=== PATIENT | female | born 1960 | race Caucasian/White ===

== ENCOUNTER 2019-04-16 08:45 | Inpatient (IN) ==
--- NOTE | 2019-04-02 15:23 | PAT Medication Instructions ---
Medication Instructions Date of Service April 02, 2019 Home Medications Ca carb-D3-mag [id number]-[id number] 1 tab PO QAM alprazolam [Xanax] 0.5 mg PO HS PRN cholecalciferol (vitamin D3) 4,000 unit PO QAM cyanocobalamin (vitamin B-12) 100 mcg IM MONTHLY duloxetine 60 mg PO QAM levothyroxine [Synthroid] 75 mcg PO QAM pantoprazole 40 mg PO QAM sulindac 200 mg PO QAM ASK your surgeon for instructions sulindac 200 mg PO QAM DO NOT take the morning of surgery Ca carb-D3-mag dy-vhm-fpqd-Zn 1 tab PO QAM cholecalciferol (vitamin D3) 4,000 unit PO QAM cyanocobalamin (vitamin B-12) 100 mcg IM MONTHLY Take morning of surgery With a small sip of water, OTHERWISE NOTHING TO EAT OR DRINK AFTER MIDNIGHT: duloxetine 60 mg PO QAM levothyroxine [Synthroid] 75 mcg PO QAM pantoprazole 40 mg PO QAM Take evening before surgery alprazolam [Xanax] 0.5 mg PO HS PRN (if needed) Other Notes If you have any questions please call us at [phone] or [phone] or [phone] or [phone]
--- NOTE | 2019-04-06 15:21 | Anesthesiology Consultation ---
Date of Service April 06, 2019 Assessment & Plan (1) Encounter for pre-operative examination: Chart Review Chart Review: Acceptable Risk for Surgery and Patient seen in Pre Admission Testing Consults Requested medical (Dr. Rivera (04/07)) Patient was seen by PCP on 04/07 for preoperative evaluation. Per note from this visit, "Patient is cleared for proposed right UKA by Dr. Cruz on April 16". Teaching & Discussion Pre-Anesthesia Teaching/Discussion Notes: Instructed NPO after midnight before surgery, except medications with 15 cc of water. Medication instructions provided according to the PAT guidelines. History Surgery Operation Date: 04/16/19 07:00 Proposed Procedures p Right Knee Unicompartmental Arthroplasty - Mando Cruz MD Height/Weight Height: 5 ft 7 in Weight: 97 kg Allergies Allergy/AdvReac Type Severity Reaction Status Date / Time No Known Allergies Allergy Verified 03/30/19 15:35 Medications Home Medications Medication Instructions Recorded Confirmed Last Taken Ca carb-D3-mag uh-izs-nstu-Zn 1 tab PO QAM 03/30/19 03/30/19 Unknown [Caltrate + D3 Plus Minerals] alprazolam [Xanax] 0.5 mg PO HS PRN 03/30/19 03/30/19 Unknown cholecalciferol (vitamin D3) 4,000 unit PO QAM 03/30/19 03/30/19 Unknown [Vitamin D3] cyanocobalamin (vitamin B-12) 100 mcg IM MONTHLY 03/30/19 03/30/19 Unknown duloxetine 60 mg PO QAM 03/30/19 03/30/19 Unknown levothyroxine [Synthroid] 75 mcg PO QAM 03/30/19 03/30/19 Unknown pantoprazole 40 mg PO QAM 03/30/19 03/30/19 Unknown sulindac 200 mg PO QAM 03/30/19 03/30/19 Unknown Past Medical History Medical History GERD (gastroesophageal reflux disease) Hypothyroidism Osteoarthritis Exercise / Class Metabolic Activity II 4-5 Yardwork/Stairs/Walk up hill (Walks >8K steps per day. Able to climb FOS. Denies CP or SOB. ) Past Surgical History Surgical History History of cardiac cath 2015= NO STENTS History of cholecystectomy History of colonoscopy History of hysterectomy PARTIAL HYSTERECTOMY History of tonsillectomy 08/13/13 - MAC #3, ETT #7.0, Grade 1 View Past Anesthesia History No Hx of Anesthesia Complications and No Family Hx of Anesthesia Complications History of PONV History of PONV (? After Hysterectomy) and Hx of Motion Sickness Social History Smoking Status: Never smoker Smoking cigarettes per day: 0 Do You Dip or Chew Tobacco: No Hx Alcohol Use: No Alcohol Intake Frequency Comment: 0 Hx Substance Use: No substance use type: does not use Review of Systems Patient denies chest pain, shortness of breath, dyspnea on exertion, wheezing, palpitations. + Joint Pain (Knee, Back) +Acid Reflux (Well controlled on current medications) +Cough (Nonproductive, PCP aware) Physical Exam Vital Signs BP: 134/84 P: 76 R: 16 T: 98.2 SPO2: 96% on RA Constitutional + obese ENMT Mouth: + poor dentition Thyromental Distance: < 3.5 Finger Breadths (3) Mallampati Class: II Neck normal visual inspection and trachea midline; neck extension not limited Respiratory normal respiratory effort Auscultation: lungs clear to auscultation bilaterally Cardiovascular Rate/Rhythm: regular rate and regular rhythm Heart Sounds: no murmur Vessels: no carotid bruit Neurologic moves all extremities Psychiatric Orientation: alert and oriented x 3 Testing Laboratory Results 04/06/19 15:52 04/06/19 15:52 04/06/19 04/06/19 04/06/19 15:52 15:52 15:52 PT 10.3 INR 1.0 APTT 26.8 Hemoglobin A1c Urine Color Yellow Urine Appearance Clear Urine pH 5.0 Ur Specific [place] 1.013 Urine Protein Negative Urine Glucose (UA) Negative Urine Ketones Negative Urine Nitrite Negative Ur Leukocyte Esterase Negative Blood Type A Negative Antibody Screen NEGATIVE 04/06/19 15:52 PT INR APTT Hemoglobin A1c 5.2 Urine Color Urine Appearance Urine pH Ur Specific [place] Urine Protein Urine Glucose (UA) Urine Ketones Urine Nitrite Ur Leukocyte Esterase Blood Type Antibody Screen 04/06/19 15:52 Urine Culture - Preliminary Urine,Clean Catch Pin-point growth present, reincubating. Electrocardiogram Date: 04/06/19 Findings: + NSR @ (67) Chest X-Ray Date: 04/06/19 Findings: + NAD FINDINGS: The lungs are clear. Cardiac silhouette is normal in size. No pleural effusions. No pneumothorax. Prior cholecystectomy.. IMPRESSION: No acute process. Cardiac Catheterization Date: 12/13/15 IMPRESSION AND PLAN: Patient has: Angiographically normal coronary arteries, Normal left ventriculogram Complications: None Recommendations: Medical therapy and aggressive risk factor modification.
[2019-04-06 16:29] LABS: Basophils # (auto) 0.04 K/uL (0-0.2); Basophils % (auto) 0.6 %; Eosinophils # (auto) 0.13 K/uL (0-0.5); Hematocrit (blood only) 36.7 % (37-47); Hemoglobin 13.1 g/dL (12.0-16.0); Immature Granulocytes # (auto) 0.01 K/uL (0.00-0.02); Immature Granulocytes % (auto) 0.2 %; Lymphocytes # (auto) 1.85 K/uL (1.2-3.4); Lymphocytes % (auto) 28.4 %; Mean Corpuscular Hgb Conc 35.7 g/dL (32-36); Mean Corpuscular Volume 84.2 fL (80-100); Mean Platelet Volume 9.5 fL (7.4-10.4); Monocytes # (auto) 0.51 K/uL (0.11-0.59); Monocytes % (auto) 7.8 %; Neutrophils # (auto) 3.97 K/uL (1.4-6.5); Platelet Count 262 K/uL (130-400); RDW Coefficient of Variation 13.3 % (11.5-14.5); RDW Standard Deviation 40.6 fL (36.4-46.3); Red Blood Count 4.36 M/uL (4.2-5.4); White Blood Count 6.51 K/uL (4.8-10.8)
--- NOTE | 2019-04-06 16:34 | XRay Report ---
XR chest Pre-admission PA/Lat HISTORY: Preop. COMPARISON: None. FINDINGS: The lungs are clear. Cardiac silhouette is normal in size. No pleural effusions. No pneumot horax. Prior cholecystectomy.. IMPRESSION: No acute process. Electronically signed by: Lakhwinder Maza M.D. 04/06/2019 4:33 PM
[2019-04-06 16:37] LABS: Appearance Urine Clear (Clear); Bilirubin Urine Negative (Negative); Blood Urine Negative (Negative); Color Urine Yellow; Glucose Urine UA Negative (Negative); Ketones Urine Negative (Negative); Leukocyte Esterase Urine Negative (Negative); Nitrite Urine Negative (Negative); Protein Urine Negative (Negative); Specific Gravity Urine 1.013 (1.000-1.030); Urobilinogen Urine Negative (Negative)
[2019-04-06 16:40] LABS: Albumin Level 3.8 gm/dl (3.4-5.0); BUN Creatinine Ratio 13.4 (10-20); Calcium 9.4 mg/dl (8.5-10.1); Creatinine Clr Calc Pharmacy 65.9 ml/min; Est GFR (African American) 62.3; Est GFR (Non-African American) 53.7; Potassium 4.1 mmol/L (3.5-5.1)
[2019-04-06 16:43] LABS: Partial Thromboplastin Time 26.8 Seconds (21.0-31.0); Prothrombin Time 10.3 Seconds (9.0-12.0)
[2019-04-07 05:36] LABS: Estimated Average Glucose 103 mg/dl; Hemoglobin A1C 5.2 % (4.5-5.6)
--- NOTE | 2019-04-14 20:50 | History & Physical Report ---
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 Treatment options were discussed with the patient at [facility]. She has failed conservative measures as above. She continues to have significant pain in her knee. Risks benefits and alternatives to surgery where discuss with the patient including but not limited to DVT, PE, damage to blood vessels or nerves, stiffness, failure to relieve all symptoms, possibility of Need for revision surgery, risks of anesthesia, a patient demonstrated understanding. All questions were answered. Plan will be for right unicompartmental knee arthroplasty. Planned for for aspirin 81 mg bid for 30 days postoperatively for DVT prophylaxis, plans on home with outpatient Physical Therapy upon discharge from the hospital. She will follow up post operatively. History of Present Illness Chief Complaint: Right knee pain Primary Care Provider: Sydnie Rivera Patient is a 58 year old female with past medical history significant for anxiety, hypothyroidism, and GERD. She presents with a long-standing history of right knee pain. She continues at medial side of knee pain despite conservatives measures such as cortisone injection anti-inflammatories and physical therapy. So let's proceed with surgical intervention. Surgery is scheduled for Apr 16 2019 at [facility]. Patient denies headaches, sweats, fevers, chills, double vision, blurred vision, cough, sore throat, dysphagia, chest pa in, sob, wheezing, n/v/d/c, numbness, tingling, fatigue, urinary symptoms, mood disorders. ROS positive for right pain and stiffness. Allergies Allergy/AdvReac Type Severity Reaction Status Date / Time No Known Allergies Allergy Verified 03/30/19 15:35 Home Medications Home Medications Medication Instructions Recorded Confirmed Type Ca carb-D3-mag fx-ztw-hsle-Zn 1 tab PO QAM 03/30/19 03/30/19 History [Caltrate + D3 Plus Minerals] alprazolam [Xanax] 0.5 mg PO HS PRN 03/30/19 03/30/19 History cholecalciferol (vitamin D3) 4,000 unit PO QAM 03/30/19 03/30/19 History [Vitamin D3] cyanocobalamin (vitamin B-12) 100 mcg IM MONTHLY 03/30/19 03/30/19 History duloxetine 60 mg PO QAM 03/30/19 03/30/19 History levothyroxine [Synthroid] 75 mcg PO QAM 03/30/19 03/30/19 History pantoprazole 40 mg PO QAM 03/30/19 03/30/19 History sulindac 200 mg PO QAM 03/30/19 03/30/19 History Past Med/Surg History Medical History GERD (gastroesophageal reflux disease) Hypothyroidism Osteoarthritis Surgical History History of cardiac cath 2016= NO STENTS History of cholecystectomy History of colonoscopy History of hysterectomy PARTIAL HYSTERECTOMY History of tonsillectomy 08/13/13 - MAC #3, ETT #7.0, Grade 1 View Social History Preferred Language: Ukrainian Communication Ability: Effective Radio Despatcher Required: No Beliefs That Will Affect Care: None Current Living Situation: Spouse Other Information That Helps Us Care for You: No Feels Safe at Home: Yes Safety Concerns: Feels Safe At This Time Smoking Status: Never smoker Cigarettes Per Day: 0 Do You Dip or Chew Tobacco: No Second Hand Exposure: No Tobacco Cessation Education Requested by Patient: No Hx Alcohol Use: No Hx Substance Use: No Review of Systems All systems reviewed & are unremarkable except as noted in HPI & below Physical Exam Constitutional: well developed and well nourished; no acute distress Eyes: PERRL, conjunctivae normal, anicteric sclerae ENMT: external ear and nose normal, oropharynx normal Neck: trachea midline, no thyromegaly Respiratory: normal respiratory effort, lungs clear to auscultation Cardiovascular: RRR, no murmur, no edema Musculoskeletal: Right knee range of motion 0 to 135 degrees, stable to valgus and varus stress test, tenderness medial joint line, positive stephanie's Skin: no rashes, warm and dry Neurologic: patellar DTR's 2+ bilat, sensation intact Psychiatric: A+Ox3, euthymic affect Results & Data Laboratory Results Lab Results 04/06/19 04/06/19 04/06/19 Range/Units 15:52 15:52 15:52 WBC 6.51 (4.8-10.8) K/uL RBC 4.36 (4.2-5.4) M/uL Hgb 13.1 (12.0-16.0) g/dL Hct 36.7 L (37-47) % MCV 84.2 (80-100) fL MCH 30.0 (25-34) pg MCHC 35.7 (32-36) g/dL RDW Std Deviation 40.6 (36.4-46.3) fL RDW Coeff of Malia 13.3 (11.5-14.5) % Plt Count 262 (130-400) K/uL MPV 9.5 (7.4-10.4) fL Immature Gran % (Auto) 0.2 % Neut % (Auto) 61.0 % Lymph % (Auto) 28.4 % [place] % (Auto) 7.8 % Eos % (Auto) 2.0 % Baso % (Auto) 0.6 % Immature Gran # (Auto) 0.01 (0.00-0.02) K/uL Neut # (Auto) 3.97 (1.4-6.5) K/uL Lymph # (Auto) 1.85 (1.2-3.4) K/uL [place] # (Auto) 0.51 (0.11-0.59) K/uL Eos # (Auto) 0.13 (0-0.5) K/uL Baso # (Auto) 0.04 (0-0.2) K/uL PT 10.3 (9.0-12.0) Seconds INR 1.0 (0.9-1.1) APTT 26.8 (21.0-31.0) Seconds PTT Ratio 1.0 Sodium 140 (136-145) mmol/L Potassium 4.1 (3.5-5.1) mmol/L Chloride 107 (98-107) mmol/L Carbon Dioxide 27 (21-32) mmol/L Anion Gap 6.0 (3-11) BUN 15 (7-18) mg/dl Creatinine 1.14 (0.6-1.2) mg/dl Est Cr Clr Drug Dosing 65.9 ml/min Est GFR ( Amer) 62.3 Est GFR (Non-Af Amer) 53.7 BUN/Creatinine Ratio 13.4 (10-20) Glucose 86 (70-99) mg/dl Estimat Average Glucose mg/dl Hemoglobin A1c (4.5-5.6) % Calcium 9.4 (8.5-10.1) mg/dl Albumin 3.8 (3.4-5.0) gm/dl Urine Color Urine Appearance (Clear) Urine pH (4.5-7.5) Ur Specific [place] (1.000-1.030) Urine Protein (Negative) Urine Glucose (UA) (Negative) Urine Ketones (Negative) Urine Blood (Negative) Urine Nitrite (Negative) Urine Bilirubin (Negative) Urine Urobilinogen (Negative) Ur Leukocyte Esterase (Negative) Blood Type Antibody Screen 04/06/19 04/06/19 04/06/19 Range/Units 15:52 15:52 15:52 WBC (4.8-10.8) K/uL RBC (4.2-5.4) M/uL Hgb (12.0-16.0) g/dL Hct (37-47) % MCV (80-100) fL MCH (25-34) pg MCHC (32-36) g/dL RDW Std Deviation (36.4-46.3) fL RDW Coeff of Malia (11.5-14.5) % Plt Count (130-400) K/uL MPV (7.4-10.4) fL Immature Gran % (Auto) % Neut % (Auto) % Lymph % (Auto) % [place] % (Auto) % Eos % (Auto) % Baso % (Auto) % Immature Gran # (Auto) (0.00-0.02) K/uL Neut # (Auto) (1.4-6.5) K/uL Lymph # (Auto) (1.2-3.4) K/uL [place] # (Auto) (0.11-0.59) K/uL Eos # (Auto) (0-0.5) K/uL Baso # (Auto) (0-0.2) K/uL PT (9.0-12.0) Seconds INR (0.9-1.1) APTT (21.0-31.0) Seconds PTT Ratio Sodium (136-145) mmol/L Potassium (3.5-5.1) mmol/L Chloride (98-107) mmol/L Carbon Dioxide (21-32) mmol/L Anion Gap (3-11) BUN (7-18) mg/dl Creatinine (0.6-1.2) mg/dl Est Cr Clr Drug Dosing ml/min Est GFR ( Amer) Est GFR (Non-Af Amer) BUN/Creatinine Ratio (10-20) Glucose (70-99) mg/dl Estimat Average Glucose 103 mg/dl Hemoglobin A1c 5.2 (4.5-5.6) % Calcium (8.5-10.1) mg/dl Albumin (3.4-5.0) gm/dl Urine Color Yellow Urine Appearance Clear (Clear) Urine pH 5.0 (4.5-7.5) Ur Specific [place] 1.013 (1.000-1.030) Urine Protein Negative (Negative) Urine Glucose (UA) Negative (Negative) Urine Ketones Negative (Negative) Urine Blood Negative (Negative) Urine Nitrite Negative (Negative) Urine Bilirubin Negative (Negative) Urine Urobilinogen Negative (Negative) Ur Leukocyte Esterase Negative (Negative) Blood Type A Negative Antibody Screen NEGATIVE Diagnostic Findings Right knee radiographs: Moderate joint space narrowing medial compartment with osteophyte formation medial femoral condyle and medial tibial plateau. MRI of right knee demonstrates an OCD medial femoral condyle. Lateral compartment and patellofemoral compartment appear to be well preserved.
[~2019-04-16 08:45] MED LIST: ACETAMINOPHEN 500 MG TAB PO SCH; BUPIVACAINE 0.5 % 5 MG/1 ML PF 10ML VIAL ONE; CEFAZOLIN 2000MG 2,000 MG/15 ML SYR IV SCH; CeleBREX 200 MG CAP PO SCH; EPINEPHrine INJ 1 MG/ML AMP ONE; FAMOTIDINE 20 MG TAB PO SCH; GABAPENTIN 300 MG x 2 PO SCH; LR 500ML BOLUS, THEN 15ML/HR IV SCH; ROPIVACAINE 0.5% 5 MG/ML 30 ML VIAL ONE; ROPIVACAINE 0.5% HCL/PF 150 MG, BUPIVACAINE 0.5% MPF 30 ML, EPINEPHrine 30MG/30ML (OR U... INFIL SCH; TRANEXAMIC ACID 1,000 MG **IV Intra-op IV SCH; TRANEXAMIC ACID 1,000 MG **IV Pre-op IV SCH; dexAMETHasone 4 MG TAB PO SCH
--- OUTSIDE RECORDS SUMMARY | 2019-04-16 08:51 | External Medical Summary | Continuity of Care Document ---
:1960 Author Name Yuridia Booker Address Unavailable Unavailable , Care Team Providers Name Role Phone Annia Elder M.D. Unavailable 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 Refills: 0 Xanax 0.5 MG Oral Tablet; TAKE 1 TABLET Daily at Bedtime as needed for sleep. Refills: 0 Caltrate 600 Plus-Vit D TABS; TAKE 1 TABLET TWICE DAILY D IRECTED. Refills: 0 Venlafaxine HCl - 75 MG Oral Tablet; TAKE 1 TABLET DAILY. Start: 12-Aug-2013 Refills: 0 Synthroid 75 MCG Oral Tablet; TAKE 1 TAB LET IN THE MORNING ON AN EMPTY STOMACH WITH A FULL GLASS OF WATER, WAIT 30 MINUTES TO EAT Jhony Elder Sta rt: 12-Aug-2013 Quantity: 30 Refills: 5 Biotin 5000 MCG Oral Capsule; TAKE CAPSULE Daily Refills: 0 Vitamin D3 2000 UNIT Oral Capsule; TAKE 1 CAPSULE Daily Refills: 0 Procedures Procedures not documented Immunizations Immunizations not documented Social History - Smoking Status Never smoker Interventions Follow-ups/ReferralsFollow-up visit in 1 year; Done: 07 Sep 2015 Discussion/SummaryApproximately 15 Minutes was spent with the patient. Greater than 50% of time with patient was spent on counseling and coordinating care. Various aspects of thyroid disease and sleep hygiene. Plan of Treatment Planned Observations Planned Goals not documented Results No Known Results Results not documented Encounters Appointment; Josh Elder M.D. 05-Sep-2015 17:20 Encounter Diagnosis: Problem not documented
--- NOTE | 2019-04-16 09:01 | History & Physical Bridge Note ---
Date of Service April 16, 2019 History & Physical Bridge Note I have examined the patient, reviewed the History & Physical and in the interval since the performance of the History & Physical I have noted the following changes of clinical significance: no changes noted
[2019-04-16] MEDS ORDERED: MIDAZOLAM HCL 1 MG/ML 2ML VIAL ONE ×2 (09:06→10:27)
[2019-04-16] MEDS ORDERED: fentaNYL citrate 100 MCG/2 ML VIAL ONE (09:06)
[2019-04-16] MEDS ORDERED: fentaNYL citrate 100 MCG/2 ML VIAL IV PRN (09:27)
[2019-04-16] MEDS ORDERED: ePHEDrine sulfate 50 MG/ML AMP IV PRN (09:27)
[2019-04-16] MEDS ORDERED: LABETALOL HCL IV 5 MG/ML 20ML IV PRN (09:27)
[2019-04-16] MEDS ORDERED: MEPERIDINE HCL 25 MG/ML CARP IV PRN (09:27)
[2019-04-16] MEDS ORDERED: ATROPINE SULFATE 0.1 MG/ML 10ML SYR IV PRN (09:27)
[2019-04-16] MEDS ORDERED: PHENYLEPHRINE 100MCG/ML 5ML SYR IV PRN (09:27)
[2019-04-16] MEDS ORDERED: ONDANSETRON INJ 2 MG/ML 2 ML VIAL IV PRN ×2 (09:27→13:46)
[2019-04-16] MEDS ORDERED: HYDROmorphone INJ 1 MG/ML SYRINGE IV PRN (09:27)
[2019-04-16] MEDS ORDERED: POVIDONE-IODINE OP SOLN 30 ML BTL ONE (09:47)
[2019-04-16] MEDS ORDERED: BACITRACIN INJ 50,000 UNIT VIAL ONE (09:47)
[2019-04-16] MEDS ORDERED: KETAMINE HCL INJ 50 MG/ML 10 ML VIAL ONE (10:39)
[2019-04-16] MEDS ORDERED: PROPOFOL IV EMULSION 10 MG/ML 20 ML VIAL IV ONE (10:44)
[2019-04-16] MEDS ORDERED: ONDANSETRON INJ 2 MG/ML 2 ML VIAL ONE (10:44)
--- NOTE | 2019-04-16 11:45 | Operative Report ---
Post Operative Report Pre & Post Diagnosis Operation Date: 04/16/19 11:05 Pre-Op Diagnosis: RIGHT KNEE MEDIAL COMPARTMENT OSTEOARTHRITIS with osteonecrosis medial femoral condyle Post-Op Diagnosis: RIGHT KNEE MEDIAL COMPARTMENT OSTEOARTHRITIS with osteonecrosis medial femoral condyle Procedure Operation Date: 04/16/19 11:05 Actual Procedures p Right Knee Unicompartmental Arthroplasty(Right) - Mando Cruz MD Surgeon Mando Cruz MD Sap Basis Administrator Graeme Donis PA-C Estimated Blood Loss 10 Findings Consistent with Post-Op Diagnosis Specimens Bone and tissue Drains None Anesthesia Type Spinal MAC Complications none Disposition Accompanied Patient To Recovery: No Disposition: Recovery Room Indications The patient is a 58-year-old female long-standing pain of the right knee. Imaging demonstrated arthritis of the medial compartment as well as osteonecrosis of the posterior aspect of the medial femoral condyle. She has failed conservative measures including injection, anti-inflammatories, rehab. She wishes to proceed with a unicompartmental knee arthroplasty Description of Procedure Risks benefits and alternatives of surgery including but not limited to infection, DVT, pain, stiffness, need for surgery, damage to blood vessels, damage to nerves or risks of anesthesia were discussed with the patient and they wished to proceed. The patient was identified and the laterality was confirmed and marked. They received a preoperative antibiotic as well as a spinal anesthetic and an abductor canal block. A well-padded tourniquet was applied and then the limb was prepped and draped in standard manner with ChloraPrep. The limb was exsanguinated and the tourniquet was inflated. I made an anterior incision slightly medial to the midline. I sharply incised the skin then utilized Bovie electrocautery to achieve hemostasis. I made a medial parapatellar arthrotomy immobilized the patella laterally. I then e xcised the anterior horns of the medial meniscus as well as a portion of infrapatellar fat pad. I then inspected the patellofemoral joint. There was only mild degenerative change in the patellofemoral joint. I then inspected the lateral compartment. There was no degenerative change in the lateral compartment. I then pinned into place a patient-matched distal tibial cutting guide and made my tibial resection centering the lateral cut off of the border of the anterior cruciate ligament. I then pinned into place a patient-matched femoral cutting guide. I then pinned into place the 2 in 1 femoral cutting guide. I made my posterior and chamfer cuts. I then pinned into place the tibial trial. I then drilled for the posts. I then sequentially trialed to size the polyethylene until there was good soft tissue balancing and range of motion. All the trial components were removed. The deep tissues were anesthetized with an ortho mix solution. Then with Simplex HV with gentamicin cement, I cemented my definitive components. Definitive components, Andrews and Nephew ZUK: Femur C Tibia 2 Poly 8 A betadine soak was performed. The arthrotomy was closed with interrupted #1 Vicryl suture subcutaneous tissue was closed with interrupted 2-0 Vicryl suture. The skin was closed with with prateek. A malou and Acticoat dressing were placed Sterile dressings were applied. All needle and sponge counts were correct at the end of the procedure patient was transferred to the PACU in stable condition without apparent complication. The PA-C was necessary for assistance with procedure for assistance in positioning, prepping, draping, retraction and closure. I attest to the content of the Intraoperative Record and any orders documented therein. Any exceptions are noted below.
--- NOTE | 2019-04-16 12:47 | XRay Report ---
XR knee RT 2V routine CLINICAL HISTORY: Postoperative evaluation. COMPARISON: None FINDINGS: These images demonstrate a medial compartment arthroplasty of the right knee. Hardware is intact. Alignment is anatomic. There are skin prateek. There is no fracture or unexpected radiopaque foreign body. IMPRESSION: Expected findings following medial compartment arthroplasty of the right knee. Electronically signed by: Jered Haque M.D. 04/16/2019 12:46 PM
--- NOTE | 2019-04-16 12:54 | Anesthesiology Progress Note ---
Date of Service April 16, 2019 Anesthesia Post Procedure Vital Signs Vital Signs: Temp Pulse Pulse Resp BP Pulse Ox 04/16/19 12:50 63 17 111/78 95 04/16/19 12:40 66 15 126/78 95 04/16/19 12:30 73 20 126/72 97 04/16/19 12:23 36.4 C L 75 16 118/75 100 04/16/19 09:05 36.7 C 67 18 131/92 96 Pain Intensity Right Knee: Pain Intensity: 0 Transfer of Care Handoff Completed per policy Notes Mental Status: alert / awake / arousable Patient Amnestic to Procedure: Yes Nausea / Vomiting: adequately controlled Pain: adequately controlled Airway Patency, RR, SpO2: stable & adequate BP & HR: stable & adequate Hydration State: stable & adequate Neuraxial Anesthesia: was administered and sensory block is resolving Anesthetic Complications: no major complications apparent and Pt Satisfied with anesthetic care
[2019-04-16] MEDS ORDERED: OXYCODONE HCL IR 5 MG TAB (IMMEDIATE RELEASE) PO PRN (13:46)
[2019-04-16] MEDS ORDERED: MAGNESIUM HYDROXIDE SUSP 30 ML UDC PO PRN (13:46)
[2019-04-16] MEDS ORDERED: HYDROmorphone INJ 0.5 MG/0.5 ML SYR IV PRN (13:46)
[2019-04-16] MEDS ORDERED: BISACODYL 10 MG SUPP PR PRN (13:46)
[2019-04-16] MEDS ORDERED: ALPRAZolam 0.5 MG TABLET PO PRN (13:46)
[2019-04-16] MEDS ORDERED: NALOXONE HCL 0.4 MG/1 ML VIAL/CARP IV PRN (13:46)
[2019-04-16] MEDS: SODIUM CHLORIDE 0.9% 1000ML 1,000 ML IV SCH ×2 (13:58→19:41)
[2019-04-16] MEDS: ACETAMINOPHEN 500 MG TAB PO SCH ×2 (14:03→21:37)
[2019-04-16] MEDS: CEFAZOLIN 2000MG 2,000 MG/15 ML SYR IV SCH (16:58)
[2019-04-16] MEDS: DOCUSATE SODIUM 100 MG CAP PO SCH (20:32)
[2019-04-16] MEDS: ASPIRIN 81 MG ECTAB PO SCH (20:32)
[2019-04-16] MEDS ORDERED: SENNA 8.6 MG TAB PO SCH (21:00)
[2019-04-16] MEDS: CeleBREX 200 MG CAP PO SCH (21:35)
[2019-04-17] MEDS: CEFAZOLIN 2000MG 2,000 MG/15 ML SYR IV SCH (01:39)
[2019-04-17] MEDS ORDERED: ACETAMINOPHEN 500 MG TAB PO SCH ×2 (05:30→09:15)
[2019-04-17 05:48] LABS: Hematocrit (blood only) 30.6 % (37-47); Hemoglobin 10.4 g/dL (12.0-16.0); Mean Platelet Volume 8.8 fL (7.4-10.4); Platelet Count 209 K/uL (130-400); Red Blood Count 3.56 M/uL (4.2-5.4); White Blood Count 9.73 K/uL (4.8-10.8)
[2019-04-17 06:22] LABS: BUN Creatinine Ratio 18.6 (10-20); Calcium 8.6 mg/dl (8.5-10.1); Creatinine Clr Calc Pharmacy 73.2 ml/min; Est GFR (African American) 71.2; Est GFR (Non-African American) 61.4; Potassium 4.2 mmol/L (3.5-5.1)
[2019-04-17] MEDS ORDERED: LEVOTHYROXINE SODIUM 75 MCG TABLET PO SCH (06:30)
--- NOTE | 2019-04-17 07:17 | Orthopedic Progress Note ---
Date of Service April 17, 2019 Assessment & Plan (1) Primary osteoarthritis of right knee: POD#1 right UKA -Pain management -DVT prophylaxis-ASA 81mg BID -PT/OT -D/C planning-home with plans on doing outpatient PT later today as long as PT goes well -AM labs- hemoglobin down to 10.4 from 13.1 likely due to surgical loss vs dilutional. Subjective Patient is POD1 from her right UKA. She is doing well. Pain is controlled. She does not have much pain with rest, does have some with WB. She denies any other complaints. She would like to go home today. Review of Systems Review of Systems: All systems reviewed & are unremarkable except as noted in HPI & below Physical Exam Physical Exam: Dressing is c/d/i. Toes are mobile, no calf tenderness. N/V status and sensation intact. CALIN is sucking. Results & Data Vital Signs (Past 12 Hours) Vital Signs Temp Pulse Pulse Resp BP BP Pulse Ox 04/17/19 03:11 36.5 C 65 14 104/64 95 04/16/19 23:29 36.4 C L 68 14 135/78 97 04/16/19 19:19 36.5 C 68 16 119/76 95
--- NOTE | 2019-04-17 07:49 | Anesthesiology Progress Note ---
Date of Service April 17, 2019 Anesthesia Post Procedure Vital Signs Vital Signs: Temp Pulse Pulse Pulse Resp BP BP 04/17/19 07:31 36.5 C 66 16 122/75 04/17/19 03:11 36.5 C 65 14 104/64 04/16/19 23:29 36.4 C L 68 14 135/78 04/16/19 19:19 36.5 C 68 16 119/76 04/16/19 16:12 36.2 C L 70 17 117/77 04/16/19 15:36 36.3 C L 72 16 134/85 04/16/19 14:16 60 16 128/84 04/16/19 13:46 65 16 124/82 04/16/19 13:15 36.5 C 67 16 123/82 04/16/19 13:00 36.6 C 63 17 118/83 04/16/19 12:50 63 17 111/78 04/16/19 12:40 66 15 126/78 04/16/19 12:30 73 20 126/72 04/16/19 12:23 36.4 C L 75 16 118/75 04/16/19 09:05 36.7 C 67 18 131/92 Pulse Ox 04/17/19 07:31 97 04/17/19 03:11 95 04/16/19 23:29 97 04/16/19 19:19 95 04/16/19 16:12 95 04/16/19 15:36 93 04/16/19 14:16 97 04/16/19 13:46 100 04/16/19 13:15 97 04/16/19 13:00 94 04/16/19 12:50 95 04/16/19 12:40 95 04/16/19 12:30 97 04/16/19 12:23 100 04/16/19 09:05 96 Pain Intensity Right Knee: Pain Intensity: 0 Notes Mental Status: alert / awake / arousable and participated in evaluation Nausea / Vomiting: adequately controlled Pain: adequately controlled Airway Patency, RR, SpO2: stable & adequate BP & HR: stable & adequate Hydration State: stable & adequate
[2019-04-17] MEDS: DOCUSATE SODIUM 100 MG CAP PO SCH (08:52)
[2019-04-17] MEDS: ASPIRIN 81 MG ECTAB PO SCH (08:52)
[2019-04-17] MEDS: CeleBREX 200 MG CAP PO SCH (08:52)
[2019-04-17] MEDS ORDERED: CALCIUM 600MG + VIT D 400 IU TAB PO SCH (09:00)
[2019-04-17] MEDS ORDERED: PANTOprazole 40 MG TAB PO SCH (09:00)
[2019-04-17] MEDS ORDERED: MULTIVITAMIN TAB PO SCH (09:00)
[2019-04-17] MEDS ORDERED: DULOXETINE HCL 60 MG CAP PO SCH (09:00)
[2019-04-17] MEDS ORDERED: CHOLECALCIFEROL 1,000 UNITS TAB PO SCH (09:00)
--- NOTE | 2019-04-18 15:49 | Discharge Summary ---
Date of Service April 18, 2019 Admission HPI Per Admitting Provider Patient is a 58 year old female with past medical history significant for anxiety, hypothyroidism, and GERD. She presents with a long-standing history of right knee pain. She continues at medial side of knee pain despite conservatives measures such as cortisone injection anti-inflammatories and physical therapy. So let's proceed with surgical intervention. Surgery is scheduled for Apr 16 2019 at [facility]. Patient denies headaches, sweats, fevers, chills, double vision, blurred vision, cough, sore throat, dysphagia, chest pain, sob, wheezing, n/v/d/c, numbness, tingling, fatigue, urinary symptoms, mood disorders. ROS positive for right pain and stiffness. Admission Exam Per Admitting Provider Constitutional: well developed and well nourished; no acute distress Eyes: PERRL, conjunctivae normal, anicteric sclerae ENMT: external ear and nose normal, oropharynx normal Neck: trachea midline, no thyromegaly Respiratory: normal respiratory effort, lungs clear to auscultation Cardiovascular: RRR, no murmur, no edema Musculoskeletal: Right knee range of motion 0 to 135 degrees, stable to valgus and varus stress test, tenderness medial joint line, positive stephanie's Skin: no rashes, warm and dry Neurologic: patellar DTR's 2+ bilat, sensation intact Psychiatric: A+Ox3, euthymic affect Principal Diagnosis Right knee osteoarthritis Discharge Exam Constitutional well developed and well nourished; no acute distress Eyes PERRL, conjunctivae normal, anicteric sclerae ENMT external ear and nose normal, oropharynx normal Neck trachea midline, no thyromegaly Respiratory normal respiratory effort, lungs clear to auscultation Cardiovascular RRR, no murmur, no edema Skin no rashes, warm and dry Neurologic patellar DTR's 2+ bilat, sensation intact Psychiatric A+Ox3, euthymic affect Discharge Data Allergies Allergy/AdvReac Type Severity Reaction Status Date / Time No Known Allergies Allergy Verified 04/16/19 09:01 Consultations 04/16/19 13:46 Consult Case Management - Discharge Planning Routine Procedures Performed Operation Date: 04/16/19 11:05 Actual Procedures p Right Knee Unicompartmental Arthroplasty(Right) - Mando Cruz MD Ordered Studies 04/16/19 05:00 US - OR guided needle placemen Routine Hospital Course (1) Primary osteoarthritis of right knee: Patient presented for same day admission following right unicompartmental knee arthroplasty on 04/16/19. She tolerated procedure well. The Patient had an uneventful hospital course. Post-operatively, her activity was progressed and well tolerated. They participated in PT with ambulation distance of 200 feet. ROM of operative knee reached 80 degrees. Labs remained stable- lowest hemoglobin recorded: 10.4. Pain controlled on oral medications. Please refer to daily progress notes and PT notes for complete details. After exam on 04/17/19, patient was felt to be stable for discharge home with plans on attending outpatient PT. Patient will f/u in the office in about 2 weeks for further evaluation including x-rays and incision check, sooner if having any issues or concerns. Lab Results 04/06/19 04/06/19 04/06/19 Range/Units 15:52 15:52 15:52 WBC 6.51 (4.8-10.8) K/uL RBC 4.36 (4.2-5.4) M/uL Hgb 13.1 (12.0-16.0) g/dL Hct 36.7 L (37-47) % MCV 84.2 (80-100) fL MCH 30.0 (25-34) pg MCHC 35.7 (32-36) g/dL RDW Std Deviation 40.6 (36.4-46.3) fL RDW Coeff of Malia 13.3 (11.5-14.5) % Plt Count 262 (130-400) K/uL MPV 9.5 (7.4-10.4) fL Immature Gran % (Auto) 0.2 % Neut % (Auto) 61.0 % Lymph % (Auto) 28.4 % Archer % (Auto) 7.8 % Eos % (Auto) 2.0 % Baso % (Auto) 0.6 % Immature Gran # (Auto) 0.01 (0.00-0.02) K/uL Neut # (Auto) 3.97 (1.4-6.5) K/uL Lymph # (Auto) 1.85 (1.2-3.4) K/uL Archer # (Auto) 0.51 (0.11-0.59) K/uL Eos # (Auto) 0.13 (0-0.5) K/uL Baso # (Auto) 0.04 (0-0.2) K/uL PT 10.3 (9.0-12.0) Seconds INR 1.0 (0.9-1.1) APTT 26.8 (21.0-31.0) Seconds PTT Ratio 1.0 Sodium 140 (136-145) mmol/L Potassium 4.1 (3.5-5.1) mmol/L Chloride 107 (98-107) mmol/L Carbon Dioxide 27 (21-32) mmol/L Anion Gap 6.0 (3-11) BUN 15 (7-18) mg/dl Creatinine 1.14 (0.6-1.2) mg/dl Est Cr Clr Drug Dosing 65.9 ml/min Est GFR ( Amer) 62.3 Est GFR (Non-Af Amer) 53.7 BUN/Creatinine Ratio 13.4 (10-20) Glucose 86 (70-99) mg/dl Estimat Average Glucose mg/dl Hemoglobin A1c (4.5-5.6) % Calcium 9.4 (8.5-10.1) mg/dl Albumin 3.8 (3.4-5.0) gm/dl Urine Color Urine Appearance (Clear) Urine pH (4.5-7.5) Ur Specific [place] (1.000-1.030) Urine Protein (Negative) Urine Glucose (UA) (Negative) Urine Ketones (Negative) Urine Blood (Negative) Urine Nitrite (Negative) Urine Bilirubin (Negative) Urine Urobilinogen (Negative) Ur Leukocyte Esterase (Negative) Blood Type Antibody Screen 04/06/19 04/06/19 04/06/19 Range/Units 15:52 15:52 15:52 WBC (4.8-10.8) K/uL RBC (4.2-5.4) M/uL Hgb (12.0-16.0) g/dL Hct (37-47) % MCV (80-100) fL MCH (25-34) pg MCHC (32-36) g/dL RDW Std Deviation (36.4-46.3) fL RDW Coeff of Malia (11.5-14.5) % Plt Count (130-400) K/uL MPV (7.4-10.4) fL Immature Gran % (Auto) % Neut % (Auto) % Lymph % (Auto) % Archer % (Auto) % Eos % (Auto) % Baso % (Auto) % Immature Gran # (Auto) (0.00-0.02) K/uL Neut # (Auto) (1.4-6.5) K/uL Lymph # (Auto) (1.2-3.4) K/uL Archer # (Auto) (0.11-0.59) K/uL Eos # (Auto) (0-0.5) K/uL Baso # (Auto) (0-0.2) K/uL PT (9.0-12.0) Seconds INR (0.9-1.1) APTT (21.0-31.0) Seconds PTT Ratio Sodium (136-145) mmol/L Potassium (3.5-5.1) mmol/L Chloride (98-107) mmol/L Carbon Dioxide (21-32) mmol/L Anion Gap (3-11) BUN (7-18) mg/dl Creatinine (0.6-1.2) mg/dl Est Cr Clr Drug Dosing ml/min Est GFR ( Amer) Est GFR (Non-Af Amer) BUN/Creatinine Ratio (10-20) Glucose (70-99) mg/dl Estimat Average Glucose 103 mg/dl Hemoglobin A1c 5.2 (4.5-5.6) % Calcium (8.5-10.1) mg/dl Albumin (3.4-5.0) gm/dl Urine Color Yellow Urine Appearance Clear (Clear) Urine pH 5.0 (4.5-7.5) Ur Specific [place] 1.013 (1.000-1.030) Urine Protein Negative (Negative) Urine Glucose (UA) Negative (Negative) Urine Ketones Negative (Negative) Urine Blood Negative (Negative) Urine Nitrite Negative (Negative) Urine Bilirubin Negative (Negative) Urine Urobilinogen Negative (Negative) Ur Leukocyte Esterase Negative (Negative) Blood Type A Negative Antibody Screen NEGATIVE 04/17/19 04/17/19 Range/Units 05:19 05:19 WBC 9.73 (4.8-10.8) K/uL RBC 3.56 L (4.2-5.4) M/uL Hgb 10.4 L (12.0-16.0) g/dL Hct 30.6 L (37-47) % MCV 86.0 (80-100) fL MCH 29.2 (25-34) pg MCHC 34.0 (32-36) g/dL RDW Std Deviation 41.0 (36.4-46.3) fL RDW Coeff of Malia 13.0 (11.5-14.5) % Plt Count 209 (130-400) K/uL MPV 8.8 (7.4-10.4) fL Immature Gran % (Auto) % Neut % (Auto) % Lymph % (Auto) % Archer % (Auto) % Eos % (Auto) % Baso % (Auto) % Immature Gran # (Auto) (0.00-0.02) K/uL Neut # (Auto) (1.4-6.5) K/uL Lymph # (Auto) (1.2-3.4) K/uL Archer # (Auto) (0.11-0.59) K/uL Eos # (Auto) (0-0.5) K/uL Baso # (Auto) (0-0.2) K/uL PT (9.0-12.0) Seconds INR (0.9-1.1) APTT (21.0-31.0) Seconds PTT Ratio Sodium 143 (136-145) mmol/L Potassium 4.2 (3.5-5.1) mmol/L Chloride 111 H (98-107) mmol/L Carbon Dioxide 28 (21-32) mmol/L Anion Gap 4.0 (3-11) BUN 19 H (7-18) mg/dl Creatinine 1.02 (0.6-1.2) mg/dl Est Cr Clr Drug Dosing 73.2 ml/min Est GFR ( Amer) 71.2 Est GFR (Non-Af Amer) 61.4 BUN/Creatinine Ratio 18.6 (10-20) Glucose 109 H (70-99) mg/dl Estimat Average Glucose mg/dl Hemoglobin A1c (4.5-5.6) % Calcium 8.6 (8.5-10.1) mg/dl Albumin (3.4-5.0) gm/dl Urine Color Urine Appearance (Clear) Urine pH (4.5-7.5) Ur Specific [place] (1.000-1.030) Urine Protein (Negative) Urine Glucose (UA) (Negative) Urine Ketones (Negative) Urine Blood (Negative) Urine Nitrite (Negative) Urine Bilirubin (Negative) Urine Urobilinogen (Negative) Ur Leukocyte Esterase (Negative) Blood Type Antibody Screen Total Time Total Time Spent Total Time Spent (In Minutes): 20 Discharge Plan Discharge Items Patient Disposition: Home - Self-Care Reason For Visit: RIGHT KNEE OSTEOARTHRITIS W/KNEE PAIN Discharge Diagnosis: Right knee osteoarthritis Discharge Goals: Decrease discomfort and Improve function Activity: Per 'Additional Instructions' section Non-emergency contact: Surgeon Call non-emergency contact if: you have any medication questions, your pain is not controlled, your pain is worsening, your pain is concerning for you, you have a fever, your temperature is above 101, your wound has increased redness and your wound has increased drainage Follow-up/Referrals: Sydnie Rivera [Primary Care Provider] - Diet: Regular Addtl Provider Instructions: ACTIVITY RECOMMENDATIONS: SELF CARE INSTRUCTIONS AFTER TOTAL KNEE REPLACEMENT A. You may need to continue a physical therapy program after discharge from the hospital. There are several options available to you. Your doctor will assist you in selecting the best one for you. 1. An out-patient facility 2 to 3 times a week for therapy or home therapy. 2. Continue working on all exercises taught to you in the hospital. Your goals should be to increase bending of your knee to 90 degrees and beyond and to fully straighten your knee. B. You may progress at your own pace from walking with a walker or crutches to a cane; then to no assistive devices. C. Make walking a part of your daily routine. Be up as much as comfortable with rest periods throughout the day. Rest with leg elevation is very important. Use the ice wrap frequently for the first 3-4 weeks. D. There are no restrictions on activities. You may ride in a car, shop, participate in costume designer and all social activities. E. Wear the long elastic stockings (JEWEL hose) 20 hours a day for 2 weeks after surgery. They can be removed several times a day for laundering and for a bath. F. You may shower, no tub baths until cleared by your doctor. SPECIAL CARE INSTRUCTIONS: VERY IMPORTANT TO READ AND REVIEW A. There are a few signs you need to watch for after you are home. Call [facility] if you notice any of the followin. Increased severe knee pain. Some pain is expected especially when you exercise. 2. Increased swelling in your leg or knee; pain or swelling of the calf muscle in either lower leg. 3. Any fluid drainage from the incision. 4. Shortness of breath or chest pain. B. Please call [facility] at if you have any concerns or questions about your operation or recovery. The doctor or his nurse will return your call promptly. C. You must take antibiotics before dental work, bladder, bowel or other surgery. Your doctor will provide you with a permanent care to carry describing this precaution. IMPORTANT: * REMEMBER TO TAKE ASPIRIN, 81 MG, TWICE DAILY FOR 4 WEEKS UNLESS OTHERWISE DIRECTED. THIS IS YOUR BLOOD THINNER. * HIGH RISK PATIENTS MAY BE PRESCRIBED A STRONGER BLOOD THINNER. THIS WILL BE PROVIDED AT DISCHARGE. * CALL IF INCREASED PAIN, REDNESS, DRAINAGE OR FEVER GREATER THAT 101. * WEAR JEWEL HOSE 20 HOURS PER DAY FOR 2 WEEKS. This is a large suction dressing covering your incision. This will help pull any excess drainage from the wound and allow your incision to heal properly. You may shower with this if you can keep the unit outside of the shower. If any bleeding or leakage is noted please call your doctor's office. This will remain on your incision for 7 days and then should be removed. This can be done yourself or by the home nursing staff if applicable. The entire unit is disposable once removed. Once removed, keep incision clean and dry. If redness or drainage is noted, please call your surgeon. IF INCISION IS LEAKING THROUGH DRESSING, CALL THE OFFICE . FOLLOW UP VISIT: If appointment is not already scheduled: Please call [facility] to make a follow-up appointment for 2 weeks after your surgery at . Prescriptions: New acetaminophen [Tylenol Extra Strength] 500 mg Tablet 1,000 mg PO Q8H Qty: 60 RF: 0 celecoxib [Celebrex] 200 mg Capsule 200 mg PO BID Qty: 60 RF: 0 aspirin [Ecotrin Low Strength] 81 mg Tablet,Delayed Release (Dr/Ec) 81 mg PO BID Qty: 60 RF: 0 oxycodone 5 mg Tablet 5 - 10 mg PO .Q4H-6H MDD 6 PRN (Reason: pain) Qty: 30 RF: 0 Continued levothyroxine [Synthroid] 75 mcg Tablet 75 mcg PO QAM RF: 0 alprazolam [Xanax] 0.5 mg Tablet 0.5 mg PO HS PRN (Reason: PRN) RF: 0 pantoprazole 40 mg Tablet,Delayed Release (Dr/Ec) 40 mg PO QAM RF: 0 duloxetine 60 mg Capsule,Delayed Release(Dr/Ec) 60 mg PO QAM RF: 0 Vitamin D3 4,000 unit Capsule 4,000 unit PO QAM RF: 0 Caltrate + D3 Plus Minerals 300 mg-800 unit -25 mg-0.5 mg Tablet 1 tab PO QAM RF: 0 cyanocobalamin (vitamin B-12) 1,000 mcg/mL Kit See Rx Instructions .ROUTE .COMPLEX RF: 0 Discontinued sulindac 200 mg Tablet 200 mg PO QAM RF: 0 Stand-Alone Forms: [facility] Discharge Orders: Discharge Order (Routine); Ordered 04/17/19 Ordered By: Graeme Donis Admission Data Admit Date/Time: 04/16/19 12:30 Attending Provider: Mando Cruz Admit Provider: Mando Cruz Primary Care Provider: Sydnie Rivera Service: Surgical Services Other Interventions: Discharge Summary Assessment (RN) Last Done: 04/17/19 10:37 DC Date/Time DO NOT enter until pt leaves facility: 04/17/19 13:10
[2019-04-28] MEDS ORDERED: CYANOCOBALAMIN 1000 MCG/ML VIAL IM SCH ×2 (09:00)
== END 2019-04-17 13:10 | disposition home or self-care (01) ==
LOC: ASU 08:45 → 3E 12:30

== ENCOUNTER 2019-05-01 10:29 | Inpatient (IN) ==
--- NOTE | 2019-04-30 14:29 | Anesthesiology Consultation ---
Date of Service April 30, 2019 Assessment & Plan (1) Encounter for pre-operative examination: Anemia with hgb 10.4 noted on post-op knee surgery labs from 04/17/19. Preop labs from 04/06/19 with normal hgb at 13.1. Patient added on for right ORIF afternoon prior to surgery. At anesthesiologist discretion AM DOS if recheck CBC needed. Chart Review Chart Review: Acceptable Risk for Surgery and Patient NOT seen in Pre Admission Testing History Surgery Operation Date: 05/01/19 12:40 Proposed Procedures p Right Knee Open Reduction Intenral Fixation Medial Tibial Plateau Fracture - Mando Cruz MD Height/Weight Height: 5 ft 7 in Weight: 95.935 kg Allergies Allergy/AdvReac Type Severity Reaction Status Date / Time No Known Allergies Allergy Verified 04/30/19 14:27 Medications Home Medications Medication Instructions Recorded Confirmed Last Taken Caltrate + D3 Plus Minerals 1 tab PO QAM 03/30/19 04/16/19 04/15/19 08:00 Vitamin D3 4,000 unit PO QAM 03/30/19 04/16/19 04/15/19 08:00 alprazolam [Xanax] 0.5 mg PO HS PRN 03/30/19 04/16/19 04/15/19 20:00 cyanocobalamin (vitamin B-12) See Rx Instructions .ROUTE .COMPLEX 03/30/19 04/16/19 04/14/19 duloxetine 60 mg PO QAM 03/30/19 04/16/19 04/16/19 07:00 levothyroxine [Synthroid] 75 mcg PO QAM 03/30/19 04/16/19 04/16/19 07:30 pantoprazole 40 mg PO QAM 03/30/19 04/16/19 04/16/19 07:30 acetaminophen [Tylenol Extra 1,000 mg PO Q8H #60 tab 04/17/19 Unknown Strength] aspirin [Ecotrin Low Strength] 81 mg PO BID #60 tab 04/17/19 Unknown celecoxib [Celebrex] 200 mg PO BID #60 cap 04/17/19 Unknown oxycodone 5 - 10 mg PO .Q4H-6H PRN #30 tab 04/17/19 Unknown MDD 6 Past Medical History Medical History GERD (gastroesophageal reflux disease) Hypothyroidism Osteoarthritis Past Surgical History Surgical History History of cardiac cath 2016= NO STENTS History of cholecystectomy History of colonoscopy History of hysterectomy PARTIAL HYSTERECTOMY History of right knee surgery Right knee unicompartmental arthroplasty: 04/16/19: SAB x 1 attempt at L3/L4 + PNB at [facility] History of tonsillectomy 08/13/13 - MAC #3, ETT #7.0, Grade 1 View Social History Smoking Status: Never smoker Smoking cigarettes per day: 0 Hx Alcohol Use: No Hx Substance Use: No substance use type: does not use Testing Laboratory Results 04/17/19 WBC 9.73 H/H 10.4/30.6 (post-op) PLATELETS SODIUM 143 POTASSIUM 4.2 CHLORIDE 111 CO2 28 BUN 19 CREATININE 1.02 GLUCOSE 109 04/06/19 PT 10.3 PTT 26.8 INR 1.0 UA negative TYPE AND SCREEN A-Ab- Electrocardiogram Date: 04/06/19 Findings: + NSR @ (67) Chest X-Ray Date: 04/06/19 Findings: + NAD Cardiac Catheterization Date: 12/13/15 Angiographically normal coronary arteries, Normal left ventriculogram.
--- NOTE | 2019-04-30 18:44 | History & Physical Report ---
Date of Service April 30, 2019 Assessment & Plan (1) Right medial tibial plateau fracture: Patient has sustained a medial tibial plateau fracture. Treatment options were discussed and surgical intervention was recommended. Risks, benefits and alternatives to surgery including but not limited to infection, DVT, pain, stiffness, need for revision surgery, damage to blood vessels, damage to nerves, PE, , were discussed with the patient and they wish to proceed. Plan will be for ORIF right knee medial tibial plateau fracture. Patient was placed into a long leg knee brace locked into extension and instructed to be NWB. Surgery is planned for tomorrow 05/01/19. History of Present Illness Chief Complaint: Right knee pain Primary Care Provider: Sydnie Rivera Patient is a 58 year old female with past medical history significant for anxiety, hypothyroidism, and GERD. She recently underwent right knee unicompartmental knee arthroplasty 2 weeks ago. Her post operative course was uneventful and was during very well. 2 days ago patient slipped and fell causing significant increase in right knee pain and difficulty bearing weight. She fell again yesterday evening. She was evaluated in the office today. Armando were removed and incision was well healing. X-rays were obtained and demonstrated a displaced medial tibial plateau fracture. She was indicated for surgical intervention at [facility] tomorrow 05/01/19. Patient denies headaches, sweats, fevers, chills, double vision, blurred vision, cough, sore throat, dysphagia, chest pain, sob, wheezing, n/v/d/c, numbness, tingling, fatigue, urinary symptoms, mood disorders. ROS positive for rught knee pain and swelling. Allergies Allergy/AdvReac Type Severity Reaction Status Date / Time No Known Allergies Allergy Verified 04/30/19 14:27 Home Medications Home Medications Medication Instructions Recorded Confirmed Type Caltrate + D3 Plus Minerals 1 tab PO QAM 03/30/19 04/30/19 History Vitamin D3 4,000 unit PO QAM 03/30/19 04/30/19 History alprazolam [Xanax] 0.5 mg PO HS PRN 03/30/19 04/30/19 History cyanocobalamin (vitamin B-12) See Rx Instructions .ROUTE .COMPLEX 03/30/19 04/30/19 History duloxetine 60 mg PO QAM 03/30/19 04/30/19 History levothyroxine [Synthroid] 75 mcg PO QAM 03/30/19 04/30/19 History pantoprazole 40 mg PO QAM 03/30/19 04/30/19 History acetaminophen [Tylenol Extra 1,000 mg PO Q8H #60 tab 04/17/19 04/30/19 Rx Strength] aspirin [Ecotrin Low Strength] 81 mg PO BID #60 tab 04/17/19 04/30/19 Rx celecoxib [Celebrex] 200 mg PO BID #60 cap 04/17/19 04/30/19 Rx oxycodone 5 - 10 mg PO .Q4H-6H PRN #30 tab 04/17/19 04/30/19 Rx MDD 6 Past Med/Surg History Medical History Anxiety Fibromyalgia GERD (gastroesophageal reflux disease) Hypothyroidism Osteoarthritis Surgical History History of cardiac cath 2016= NO STENTS History of cholecystectomy History of colonoscopy History of hysterectomy PARTIAL HYSTERECTOMY History of right knee surgery Right knee unicompartmental arthroplasty: 04/16/19: SAB x 1 attempt at L3/L4 + PNB at [facility] History of tonsillectomy 08/13/13 - MAC #3, ETT #7.0, Grade 1 View Family History Other No pertinent family history Social History Preferred Language: Estonian Communication Ability: Effective Parachute Line Tier Required: No Beliefs That Will Affect Care: None Current Living Situation: Spouse and Family Other Information That Helps Us Care for You: No Feels Safe at Home: Yes Safety Concerns: Feels Safe At This Time Smoking Status: Never smoker Cigarettes Per Day: 0 Do You Dip or Chew Tobacco: No Second Hand Exposure: No Tobacco Cessation Education Requested by Patient: No Hx Alcohol Use: No Hx Substance Use: No Review of Systems All systems reviewed & are unremarkable except as noted in HPI & below Physical Exam Constitutional: well developed and well nourished; no acute distress Eyes: PERRL, conjunctivae normal, anicteric sclerae ENMT: external ear and nose normal, oropharynx normal Neck: trachea midline, no thyromegaly Respiratory: normal respiratory effort, lungs clear to auscultation Cardiovascular: RRR, no murmur, no edema Musculoskeletal: Right knee: Incision well approximated and healing well. There is no erythema or drainage. Moderate effusion. Stable collaterals. Tenderness medial aspect of knee. No calf tenderness. ROM 5-100 degrees. Skin: no rashes, warm and dry Neurologic: patellar DTR's 2+ bilat, sensation intact Psychiatric: A+Ox3, euthymic affect Results & Data Diagnostic Findings Right knee radiographs: S/p right knee unicompartmental knee arthroplasty. Hardware is intact and appears to be well fixed. There is a displaced medial tibial plateau fracture.
[~2019-05-01 10:29] MED LIST changes: -ACETAMINOPHEN 500 MG TAB PO SCH; -BUPIVACAINE 0.5 % 5 MG/1 ML PF 10ML VIAL ONE; -CeleBREX 200 MG CAP PO SCH; -EPINEPHrine INJ 1 MG/ML AMP ONE; -FAMOTIDINE 20 MG TAB PO SCH; -GABAPENTIN 300 MG x 2 PO SCH; +MIDAZOLAM HCL 1 MG/ML 2ML VIAL ONE; -ROPIVACAINE 0.5% 5 MG/ML 30 ML VIAL ONE; -ROPIVACAINE 0.5% HCL/PF 150 MG, BUPIVACAINE 0.5% MPF 30 ML, EPINEPHrine 30MG/30ML (OR U... INFIL SCH; -TRANEXAMIC ACID 1,000 MG **IV Intra-op IV SCH; -TRANEXAMIC ACID 1,000 MG **IV Pre-op IV SCH; -dexAMETHasone 4 MG TAB PO SCH; +fentaNYL citrate 100 MCG/2 ML VIAL ONE
--- NOTE | 2019-05-01 10:57 | History & Physical Bridge Note ---
Date of Service May 01, 2019 History & Physical Bridge Note I have examined the patient, reviewed the History & Physical and in the interval since the performance of the History & Physical I have noted the following changes of clinical significance: no changes noted
[2019-05-01] MEDS ORDERED: BACITRACIN INJ 50,000 UNIT VIAL ONE (11:58)
--- NOTE | 2019-05-01 11:59 | Anesthesiology Consultation ---
Date of Service May 01, 2019 Assessment & Plan Chart Review Chart Review: Acceptable Risk for Surgery and Patient NOT seen in Pre Admission Testing Consults Requested none ASA ASA3 Proposed Anesthesia Anesthesia Type: MAC Spinal Regional Regional Laterality: Right Site: Adductor Canal Risk / Benefits Reviewed With: PT / POA / Parent / Guardian, Accepts Plan and Informed Consent Obtained History Surgery Operation Date: 05/01/19 12:40 Proposed Procedures p Right Knee Open Reduction Intenral Fixation Medial Tibial Plateau Fracture - Mando Cruz MD Height/Weight Height: 5 ft 7 in Weight: 94.9 kg Allergies Allergy/AdvReac Type Severity Reaction Status Date / Time No Known Allergies Allergy Verified 05/01/19 11:14 Medications Home Medications Medication Instructions Recorded Confirmed Last Taken Caltrate + D3 Plus Minerals 1 tab PO QAM 03/30/19 05/01/19 04/30/19 10:00 Vitamin D3 4,000 unit PO QAM 03/30/19 05/01/19 04/30/19 10:00 alprazolam [Xanax] 0.5 mg PO HS PRN 03/30/19 05/01/19 04/30/19 19:00 cyanocobalamin (vitamin B-12) See Rx Instructions .ROUTE .COMPLEX 03/30/19 05/01/19 04/14/19 19:00 duloxetine 60 mg PO QAM 03/30/19 05/01/19 05/01/19 06:30 levothyroxine [Synthroid] 75 mcg PO QAM 03/30/19 05/01/19 05/01/19 06:30 pantoprazole 40 mg PO QAM 03/30/19 05/01/19 05/01/19 06:30 acetaminophen [Tylenol Extra 1,000 mg PO Q8H #60 tab 04/17/19 05/01/19 2 Days Ago Strength] ~04/29/19 aspirin [Ecotrin Low Strength] 81 mg PO BID #60 tab 04/17/19 05/01/19 04/30/19 10:00 celecoxib [Celebrex] 200 mg PO BID #60 cap 04/17/19 05/01/19 04/30/19 10:00 oxycodone 5 - 10 mg PO .Q4H-6H PRN #30 tab 04/17/19 05/01/19 04/30/19 10:00 MDD 6 Active Medications Generic Name Dose Route Start Last Admin Trade Name Simi PRN Reason Stop Dose Admin Lactated Ringer's 1,000 mls @ 0 mls/hr 05/01/19 06:00 05/01/19 11:35 Lr IV 05/01/19 18:00 500 mls/hr .Q0M PENNY Administration NPO Date Last Intake of Fluids: 04/30/19 Time Last Intake of Fluids: 22:00 Date Last Intake of Solids: 04/30/19 Time Last Intake of Solids: 15:00 Past Medical History Medical History Anxiety Fibromyalgia GERD (gastroesophageal reflux disease) Hypothyroidism Osteoarthritis Exercise / Class Metabolic Activity III < 4 Walking/Shop/Light housework Past Family History Family History Other No pertinent family history Past Surgical History Surgical History History of cardiac cath 2016= NO STENTS History of cholecystectomy History of colonoscopy History of hysterectomy PARTIAL HYSTERECTOMY History of right knee surgery Right knee unicompartmental arthroplasty: 04/16/19: SAB x 1 attempt at L3/L4 + PNB at [facility] History of tonsillectomy 08/13/13 - MAC #3, ETT #7.0, Grade 1 View Past Anesthesia History No Hx of Anesthesia Complications and No Family Hx of Anesthesia Complications History of PONV No Hx of PONV and No Hx of Motion Sickness Social History Smoking Status: Never smoker Smoking cigarettes per day: 0 Do You Dip or Chew Tobacco: No Hx Alcohol Use: No Hx Substance Use: No substance use type: does not use Physical Exam Vital Signs Last Vital Signs Temp 36.6 C 05/01/19 11:30 Pulse 77 05/01/19 11:30 Resp 20 05/01/19 11:30 BP 127/90 05/01/19 11:30 Pulse Ox 98 05/01/19 11:30 Constitutional + obese ENMT Mouth: + small oral opening; no dentition abnormality Thyromental Distance: < 3.5 Finger Breadths Mallampati Class: III Neck normal visual inspection and trachea midline; neck extension not limited Respiratory normal respiratory effort Auscultation: lungs clear to auscultation bilaterally Cardiovascular Rate/Rhythm: regular rate and regular rhythm Heart Sounds: no murmur Vessels: no carotid bruit Musculoskeletal Spine: lumbar spine normal to inspection; normal cervical ROM Neurologic moves all extremities Motor/Sensory: no sensory deficit Psychiatric Orientation: alert and oriented x 3 Testing Laboratory Results WBC: 9.73 Hc.4 Hct: 30.6 PLATELETS: 209 SODIUM: 143 POTASSIUM: 4.2 CHLORIDE: 111 CO2: 28 BUN: 19 CREATININE: 1.02 GLUCOSE: 109 PT: 10.3 PTT: 26.8 INR: 1.0 UA: TYPE AND SCREEN: Electrocardiogram Date: 04/06/19 Findings: + NSR @ (at 69) Chest X-Ray Date: 04/06/19 Findings: + NAD
[2019-05-01] MEDS ORDERED: BUPIVACAINE 0.5 % 5 MG/1 ML PF 10ML VIAL ONE (12:00)
[2019-05-01] MEDS ORDERED: ROPIVACAINE 0.5% 5 MG/ML 30 ML VIAL ONE (12:00)
[2019-05-01] MEDS ORDERED: MIDAZOLAM HCL 1 MG/ML 2ML VIAL ONE ×2 (12:34→13:18)
[2019-05-01] MEDS ORDERED: ePHEDrine sulfate 50 MG/ML AMP IV PRN (12:35)
[2019-05-01] MEDS ORDERED: ATROPINE SULFATE 0.1 MG/ML 10ML SYR IV PRN (12:35)
[2019-05-01] MEDS ORDERED: DEXAMETHASONE SOD INJ 4 MG/ML VIAL ONE (13:17)
[2019-05-01] MEDS ORDERED: PROPOFOL IV EMULSION 10 MG/ML 20 ML VIAL IV ONE ×2 (13:17→14:23)
[2019-05-01] MEDS ORDERED: ONDANSETRON INJ 2 MG/ML 2 ML VIAL ONE (13:17)
[2019-05-01] MEDS ORDERED: KETAMINE HCL INJ 50 MG/ML 10 ML VIAL ONE (13:24)
--- NOTE | 2019-05-01 14:28 | Operative Report ---
Post Operative Report Pre & Post Diagnosis Operation Date: 05/01/19 12:40 Pre-Op Diagnosis: Right Knee Medial Tibial Plateau Fracture Post-Op Diagnosis: Right Knee Medial Tibial Plateau Fracture Procedure Operation Date: 05/01/19 12:40 Actual Procedures p Right Knee Open Reduction Internal Fixation Medial Tibial Plateau Fracture(Right) - Mando Cruz MD Surgeon Mando Cruz MD Hot Dip Plater Ryder Dickens PA-C Estimated Blood Loss 20 Findings Consistent with Post-Op Diagnosis Specimens None Drains None Anesthesia Type Spinal MAC Complications none Disposition Accompanied Patient To Recovery: No Disposition: Recovery Room Indications The patient is a 58-year-old female who 2 weeks ago underwent an created right unicompartmental knee arthroplasty. At about 1-1/2 weeks postop she was outside on her patio watering her patrick. She had a walker outside but was not using it. She was using a fire pit to brace herself the fire pit slid she fell landing on leg as well as falling off of the patio and as she describes that she went flying. She was unable to bear weight on the knee after that. The following day she was in the kitchen and was tried to bear weight on the leg and fell again. X-rays demonstrate a vertical fracture of the medial tibial plateau. She presents for ORIF Description of Procedure Risks benefits and alternatives of surgery including but not limited to infection, DVT, pain, stiffness, need for surgery, damage to blood vessels, damage to nerves or risks of anesthesia were discussed with the patient and they wished to proceed. The patient was identified and the laterality was confirmed and marked. They received a preoperative antibiotic as well as a spinal anesthetic and an abductor canal block. A well-padded tourniquet was applied and then the limb was prepped and draped in standard manner with ChloraPrep. The limb was exsanguinated and the tourniquet was inflated. I reutilized the previous anterior medial incision. I sharply incised the skin and then used Bovie electrocautery to achieve hemostasis. The previous fascial repair was intact. I identified the fracture site. I released some of the previous fascial repair to inspect the component and it was stable. I then used a combination of pointed reduction clamps and a large periarticular clamp to reduce the fracture. I made a stab incision laterally to help facilitate the use of the large periarticular clamp. I then provisionally pinned the fracture into place. I then positioned my plate. This was a Synthes precontoured medial tibial plateau locking plate (4-hole). I placed a nonlocking screw distally compressing the plate down onto the bone and then again compress the fracture site utilizing the periarticular clamp. I placed locking screws proximally. I then confirmed maintenance of reduction with AP and lateral fluoroscopy views. Once I was satisfied with the fracture reduction I placed the remaining locking screws into the plate. I again confirmed that we had good reduction of the fracture. Her knee was stable upon examination after the fracture was fixed she had normal range of motion passively. The wound was then thoroughly irrigated. The fascial repair was closed with interrupted with interrupted #1 Vicryl suture. The skin was closed with with prateek. An Acticoat and Abdirashid dressing were placed. Sterile dressings were applied. All needle and sponge counts were correct at the end of the procedure patient was transferred to the PACU in stable condition without apparent complication. The PA-C was necessary for assistance with procedure for assistance in positioning, prepping, draping, retraction and closure. I attest to the content of the Intraoperative Record and any orders documented therein. Any exceptions are noted below.
--- NOTE | 2019-05-01 14:52 | Fluoroscopy Report ---
FL knee RT 1 or 2V CLINICAL HISTORY: RIGHT TIBIAL PLATEAU FX COMPARISON STUDY: Right knee 04/16/2019. FLUOROSCOPY TIME: 2 minutes and 7 seconds. FINDINGS: 2 fluoroscopic spot images of the right knee demonstrate a medial unicondylar prosthesis an d a medial cortical plate and screws transfixing the tibial plateau fracture. The hardware appears in tact. IMPRESSION: Fluoroscopy provided for internal fixation of a tibial plateau fracture. Electronically signed by: Lakhwinder Maza M.D. 05/01/2019 2:50 PM
--- NOTE | 2019-05-01 15:06 | Anesthesiology Progress Note ---
Date of Service May 01, 2019 Anesthesia Post Procedure Vital Signs Vital Signs: Temp Pulse Pulse Resp BP Pulse Ox 05/01/19 15:00 60 18 131/81 93 05/01/19 14:50 76 21 128/74 91 05/01/19 14:44 36.2 C L 67 27 H 127/78 100 05/01/19 11:30 36.6 C 77 20 127/90 98 Transfer of Care Handoff Completed per policy Notes Mental Status: alert / awake / arousable Patient Amnestic to Procedure: Yes Nausea / Vomiting: adequately controlled Pain: adequately controlled Airway Patency, RR, SpO2: stable & adequate BP & HR: stable & adequate Hydration State: stable & adequate Anesthetic Complications: no major complications apparent
[2019-05-01] MEDS ORDERED: ALPRAZolam 0.5 MG TABLET PO PRN (15:49)
[2019-05-01] MEDS ORDERED: BISACODYL 10 MG SUPP PR PRN (15:49)
[2019-05-01] MEDS ORDERED: NALOXONE HCL 0.4 MG/1 ML VIAL/CARP IV PRN (15:49)
[2019-05-01] MEDS ORDERED: ONDANSETRON INJ 2 MG/ML 2 ML VIAL IV PRN (15:49)
[2019-05-01] MEDS ORDERED: SODIUM CHLORIDE 0.9% 1000ML 1,000 ML IV SCH (15:49)
[2019-05-01] MEDS ORDERED: MAGNESIUM HYDROXIDE SUSP 30 ML UDC PO PRN (15:49)
[2019-05-01] MEDS: OXYCODONE HCL IR 5 MG TAB (IMMEDIATE RELEASE) PO PRN ×2 (17:57→22:08)
[2019-05-01] MEDS: HYDROmorphone INJ 0.5 MG/0.5 ML SYR IV PRN ×2 (19:35→23:57)
[2019-05-01] MEDS: ASPIRIN 81 MG ECTAB PO SCH (20:08)
[2019-05-01] MEDS: CEFAZOLIN 2000MG 2,000 MG/15 ML SYR IV SCH (20:08)
[2019-05-01] MEDS: ACETAMINOPHEN 500 MG TAB PO SCH (20:09)
[2019-05-01] MEDS: DOCUSATE SODIUM 100 MG CAP PO SCH (20:09)
[2019-05-01] MEDS ORDERED: SENNA 8.6 MG TAB PO SCH (21:00)
[2019-05-02] MEDS: OXYCODONE HCL IR 5 MG TAB (IMMEDIATE RELEASE) PO PRN ×3 (02:10→13:29)
[2019-05-02] MEDS: CEFAZOLIN 2000MG 2,000 MG/15 ML SYR IV SCH (03:57)
[2019-05-02] MEDS: HYDROmorphone INJ 0.5 MG/0.5 ML SYR IV PRN (05:21)
[2019-05-02] MEDS: ACETAMINOPHEN 500 MG TAB PO SCH ×2 (06:21→13:29)
[2019-05-02] MEDS ORDERED: LEVOTHYROXINE SODIUM 75 MCG TABLET PO SCH (06:30)
[2019-05-02 07:07] LABS: Hematocrit (blood only) 33.7 % (37-47); Hemoglobin 11.2 g/dL (12.0-16.0); Mean Corpuscular Hgb Conc 33.2 g/dL (32-36); Mean Corpuscular Volume 86.4 fL (80-100); Mean Platelet Volume 9.3 fL (7.4-10.4); Platelet Count 312 K/uL (130-400); RDW Coefficient of Variation 13.1 % (11.5-14.5); RDW Standard Deviation 41.1 fL (36.4-46.3); White Blood Count 9.02 K/uL (4.8-10.8)
[2019-05-02 07:26] LABS: BUN Creatinine Ratio 13.1 (10-20); Calcium 8.9 mg/dl (8.5-10.1); Creatinine Clr Calc Pharmacy 80.8 ml/min; Est GFR (African American) 80.7; Est GFR (Non-African American) 69.6; Potassium 3.7 mmol/L (3.5-5.1)
[2019-05-02] MEDS: ASPIRIN 81 MG ECTAB PO SCH (08:36)
[2019-05-02] MEDS: DOCUSATE SODIUM 100 MG CAP PO SCH (08:36)
[2019-05-02] MEDS ORDERED: DULOXETINE HCL 60 MG CAP PO SCH (09:00)
[2019-05-02] MEDS ORDERED: PANTOprazole 40 MG TAB PO SCH (09:00)
[2019-05-02] MEDS ORDERED: MULTIVITAMIN TAB PO SCH (09:00)
[2019-05-02] MEDS ORDERED: CHOLECALCIFEROL 1,000 UNITS TAB PO SCH (09:00)
[2019-05-02] MEDS ORDERED: CALCIUM 600MG + VIT D 400 IU TAB PO SCH (09:00)
--- NOTE | 2019-05-02 09:30 | Orthopedic Progress Note ---
Date of Service May 02, 2019 Assessment & Plan (1) Right medial tibial plateau fracture: POPD #1, Right knee ORIF medial tibial plateau. PT/ OT- NWB Right LE DVT proph- ASA D/C planning- Home today if ambulating independently. Subjective POD #1, doing well, denies sob, cp,n/v. Pain controlled well. Physical Exam Physical Exam: Right knee dressings/ brace in tact. Toes and ankle mobile. No calf tenderness. A&Ox3. Results & Data Vital Signs (Past 12 Hours) Vital Signs Temp Pulse Pulse Resp BP BP Pulse Ox 05/02/19 07:16 37.0 C 65 18 166/98 H 99 05/02/19 03:10 36.5 C 67 19 153/85 H 98 05/02/19 01:48 72 143/80 H 05/01/19 23:41 36.9 C 81 19 168/101 H 96
--- NOTE | 2019-05-12 01:53 | Discharge Summary ---
DATE OF ADMISSION: 05/01/2019 DATE OF DISCHARGE: 05/02/2019 DISCHARGE DIAGNOSIS: Right medial tibial plateau fracture. SECONDARY DIAGNOSES: Anxiety, fibromyalgia, gastroesophageal reflux disease, hypothyroidism, osteoarthritis. CONSULTS: None. COMPLICATIONS: None. PROCEDURES: Right knee ORIF medial tibial plateau fracture by Dr. Cruz on 05/01/2019. BRIEF HISTORY: As dictated in the history and physical. HOSPITAL SUMMARY: The patient was admitted on the above-noted date and had the above-noted surgery performed, which she tolerated well. On the first postoperative day, patient was doing well, denied shortness of breath, chest pain or nausea, vomiting. Pain was controlled. Dressings were intact. Brace was intact. Toes and ankle were mobile and no calf tenderness. Alert and oriented x3. Vital signs were stable and she was afebrile. Blood pressures were fluctuating between 143 and 166 systolic. She continued to remain stable and asymptomatic. She was started on physical therapy protocol, nonweightbearing right lower extremity, continued on DVT prophylaxis and pain management. In physical therapy, she had ambulated 30 feet x2 with a rolling walker, nonweightbearing. She had no loss of balance and was safe and steady. She was otherwise remaining stable and it was felt that she could be discharged to home on 05/02/2019. For further review, please see chart. LABORATORY AND X-RAY DATA: As per chart. DISCHARGE INSTRUCTIONS: The patient was discharged home in satisfactory condition on 05/02/2019. DIET: Regular. ACTIVITY: Nonweightbearing right lower extremity. INSTRUCTIONS: Nonweightbearing right lower leg with walker. Elevate, ice as needed. You have a wound VAC, cover the incision, remove and discard all parts 1 week postop and replace with daily sterile dressing changes. Brace at all times. When ambulating, may remove to wash, but do not bend. Pain medications as prescribed. Continue baby aspirin twice daily for 1 month and month postop to prevent blood clots. Follow up with Dr. Cruz in 10-12 days postop. Call for appointment if one has not been made for you. DISCHARGE MEDICATIONS: Aspirin 81 mg p.o. b.i.d., oxycodone 5-10 mg p.o. q.6 hours p.r.n., resume home meds as listed. Stop taking previous aspirin dose and previous oxycodone.
== END 2019-05-02 14:15 | disposition home or self-care (01) | DRG 494 ==
LOC: ASU 10:29 → 3E 15:02

== ENCOUNTER 2020-05-23 09:58 | Inpatient (IN) ==
--- NOTE | 2020-05-01 21:24 | PAT Medication Instructions ---
Medication Instructions Date of Service May 01, 2020 Home Medications Medication Instructions Recorded celecoxib [Celebrex] 200 mg PO BID #60 cap 04/17/19 Caltrate + D3 Plus Minerals 1 tab PO QAM alprazolam [Xanax] 0.5 mg PO HS PRN cyanocobalamin (vitamin B-12) 1,000 mcg IM MONTHLY duloxetine 60 mg PO QAM pantoprazole 40 mg PO QAM celecoxib [Celebrex] 200 mg PO BID cholecalciferol (vitamin D3) [Vitamin D3] 125 mcg PO QAM hydrocodone-acetaminophen 1 tab PO Q6H PRN levothyroxine 88 mcg PO QAM Continue as directed cyanocobalamin (vitamin B-12) 1,000 mcg IM MONTHLY ASK your surgeon for instructions celecoxib [Celebrex] 200 mg PO BID DO NOT take the morning of surgery Caltrate + D3 Plus Minerals 1 tab PO QAM cholecalciferol (vitamin D3) [Vitamin D3] 125 mcg PO QAM Take morning of surgery With a small sip of water, OTHERWISE NOTHING TO EAT OR DRINK AFTER MIDNIGHT: duloxetine 60 mg PO QAM pantoprazole 40 mg PO QAM hydrocodone-acetaminophen 1 tab PO Q6H PRN (okay to take up to 4 hours prior to surgery if needed) levothyroxine 88 mcg PO QAM Take evening before surgery alprazolam [Xanax] 0.5 mg PO HS PRN (if needed) hydrocodone-acetaminophen 1 tab PO Q6H PRN (if needed) Other Notes If you have any questions please call us at [phone] or [phone] or [phone] or [phone]
--- NOTE | 2020-05-03 13:52 | Anesthesiology Consultation ---
Date of Service May 03, 2020 Assessment & Plan (1) Encounter for pre-operative examination: Per PAT assessment on 05/03: Travel screen- Lives in [facility]. No known COVID-19 positive contacts. No current COVID-19 related symptoms. No hx of COVID-19 testing. Patient scheduled for preop COVID testing 05/18 ([facility]). Awaiting results. - S/P Right medial tibial plateau ORIF: 05/01/19: SAB x1 at L3-L4 + PNB at [facility] Chart Review Chart Review: Acceptable Risk for Surgery (pending surgeon-ordered PCP clearance (Sydnie Rivera NP)) and Patient seen in Pre Admission Testing Teaching & Discussion Pre-Anesthesia Teaching/Discussion Notes: Instructed NPO after midnight before surgery,except medications with 15 cc of water. Medication instructions provided according to the PAT guidelines. History Surgery Operation Date: 05/23/20 09:05 Proposed Procedures p Right Knee Total Arthroplasty Revision, - Min Jones DO s Removal Hardware - Min Jones DO Height/Weight Height: 5 ft 7 in Weight: 92.5 kg Allergies Allergy/AdvReac Type Severity Reaction Status Date / Time No Known Allergies Allergy Verified 04/26/20 15:42 Medications Home Medications Medication Instructions Recorded Confirmed Last Taken Caltrate + D3 Plus Minerals 1 tab PO QAM 03/30/19 04/26/20 05/10/19 alprazolam [Xanax] 0.5 mg PO HS PRN 03/30/19 04/26/20 04/30/19 19:00 cyanocobalamin (vitamin B-12) 1,000 mcg IM MONTHLY 03/30/19 04/26/20 05/03/19 duloxetine 60 mg PO QAM 03/30/19 04/26/20 05/10/19 pantoprazole 40 mg PO QAM 03/30/19 04/26/20 05/10/19 celecoxib [Celebrex] 200 mg PO BID #60 cap 04/17/19 04/26/20 05/10/19 08:00 cholecalciferol (vitamin D3) 125 mcg PO QAM 04/26/20 04/26/20 Unknown [Vitamin D3] hydrocodone-acetaminophen 1 tab PO Q6H PRN 04/26/20 04/26/20 Unknown levothyroxine 88 mcg PO QAM 04/26/20 04/26/20 Unknown Past Medical History Medical History Anxiety Fibromyalgia GERD (gastroesophageal reflux disease) controlled Hypothyroidism Obesity Osteoarthritis Exercise / Class Metabolic Activity II 4-5 Yardwork/Stairs/Walk up hill (one flight of stairs (no chest pain/no sob)) Past Family History Family History Other No family history of adverse response to anesthesia No pertinent family history Past Surgical History Surgical History History of cardiac cath 2016= NO STENTS History of cholecystectomy History of colonoscopy History of hysterectomy PARTIAL HYSTERECTOMY History of right knee surgery Right knee unicompartmental arthroplasty: 04/16/19: SAB x 1 attempt at L3/L4 + PNB at [facility] History of tonsillectomy 08/13/13 - MAC #3, ETT #7.0, Grade 1 View 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 Patient denies chest pain, shortness of breath, dyspnea on exertion, fever, chills, cough, wheezing, palpitations. Physical Exam Vital Signs VITALS BP 132/90 P 84 TEMP 98.2 SP02 97%RA RESP 16 PHYSICAL Full neck and c-spine range of motion. Full TMJ range of motion. TMD 3 finger breaths Mallampati Score 3 Dentition: intact Lungs: clear throughout to auscultation Cardiac: regular rate and rhythm, no murmurs noted Spine: normal Carotid arteries: negative bruit Extremities: no edema Testing Laboratory Results 05/03/20 14:37 05/03/20 14:37 PT 10.4 Seconds (9.0-12.0) 05/03/20 14:37 INR 1.0 (0.9-1.1) 05/03/20 14:37 APTT 26.8 Seconds (21.0-31.0) 05/03/20 14:37 Urine Color Yellow 05/03/20 14:37 Urine Appearance Clear (Clear) 05/03/20 14:37 Urine pH 5.0 (4.5-7.5) 05/03/20 14:37 Ur Specific [place] 1.015 (1.000-1.030) 05/03/20 14:37 Urine Protein Negative (Negative) 05/03/20 14:37 Urine Glucose (UA) Negative (Negative) 05/03/20 14:37 Urine Ketones Negative (Negative) 05/03/20 14:37 Urine Nitrite Negative (Negative) 05/03/20 14:37 Ur Leukocyte Esterase Trace (Negative) H 05/03/20 14:37 Urine WBC (Auto) 1-5 /hpf (0-5) 05/03/20 14:37 Urine RBC (Auto) 0-4 /hpf (0-4) 05/03/20 14:37 U Hyaline Cast (Auto) 0 /lpf (0-5) 05/03/20 14:37 U Epithel Cells (Auto) 20-30 /lpf (0-5) H 05/03/20 14:37 Urine Bacteria (Auto) Negative (Negative) 05/03/20 14:37 Blood Type A Negative 05/03/20 14:37 Antibody Screen NEGATIVE 05/03/20 14:37 Electrocardiogram Date: 05/03/20 NSR at 74bpm. unconfirmed report* Chest X-Ray Date: 05/03/20 Findings: + NAD
--- NOTE | 2020-05-03 15:11 | XRay Report ---
XR chest Pre-admission PA/Lat CLINICAL HISTORY: PAT preoperative COMPARISON STUDY: 05/10/2019 FINDINGS: The bones soft tissues and hemidiaphragms are normal. The cardiomediastinal silhouette is n ormal. The lungs are clear. The pulmonary vasculature is normal. IMPRESSION: Negative chest. ACT 112: Negative or not required by law. The above report was generated using voice recognition software. It may contain grammatical, syntax or spelling errors. Electronically signed by: Ruddy Carmona M.D. 05/03/2020 3:10 PM
[2020-05-03 15:41] LABS: Basophils # (auto) 0.02 K/uL (0-0.2); Basophils % (auto) 0.3 %; Eosinophils # (auto) 0.14 K/uL (0-0.5); Eosinophils % (auto) 2.4 %; Hematocrit (blood only) 39.5 % (37-47); Hemoglobin 12.9 g/dL (12.0-16.0); Immature Granulocytes # (auto) 0.01 K/uL (0.00-0.02); Immature Granulocytes % (auto) 0.2 %; Lymphocytes # (auto) 1.89 K/uL (1.2-3.4); Lymphocytes % (auto) 32.6 %; Mean Corpuscular Hemoglobin 28.3 pg (25-34); Mean Corpuscular Volume 86.6 fL (80-100); Mean Platelet Volume 9.7 fL (7.4-10.4); Monocytes # (auto) 0.38 K/uL (0.11-0.59); Monocytes % (auto) 6.6 %; Neutrophils # (auto) 3.35 K/uL (1.4-6.5); Neutrophils % (auto) 57.9 %; Platelet Count 301 K/uL (130-400); RDW Coefficient of Variation 13.6 % (11.5-14.5); RDW Standard Deviation 42.9 fL (36.4-46.3); Red Blood Count 4.56 M/uL (4.2-5.4); White Blood Count 5.79 K/uL (4.8-10.8)
[2020-05-03 15:44] LABS: Appearance Urine Clear (Clear); Bacteria Urine Automated Negative (Negative); Bilirubin Urine Negative (Negative); Blood Urine Negative (Negative); Cast Urine Automated 0 /lpf (0-5); Color Urine Yellow; Epithelial Cell Urine Auto 20-30 /lpf (0-5); Glucose Urine UA Negative (Negative); Ketones Urine Negative (Negative); Leukocyte Esterase Urine Trace (Negative); Nitrite Urine Negative (Negative); Protein Urine Negative (Negative); RBC Urine Automated 0-4 /hpf (0-4); Specific Gravity Urine 1.015 (1.000-1.030); Urobilinogen Urine Negative (Negative)
[2020-05-03 15:46] LABS: Mean Corpuscular Hgb Conc 32.7 g/dL (32-36)
[2020-05-03 15:49] LABS: Albumin Level 3.6 gm/dl (3.4-5.0); BUN Creatinine Ratio 23.5 (10-20); Calcium 9.4 mg/dl (8.5-10.1); Creatinine Clr Calc Pharmacy 80.5 ml/min; Est GFR (African American) 82.3; Potassium 3.9 mmol/L (3.5-5.1)
[2020-05-03 15:56] LABS: Partial Thromboplastin Time 26.8 Seconds (21.0-31.0); Prothrombin Time 10.4 Seconds (9.0-12.0)
[2020-05-04 06:39] LABS: Estimated Average Glucose 103 mg/dl; Hemoglobin A1C 5.2 % (4.5-5.6)
--- NOTE | 2020-05-04 15:16 | Electrocardiogram Report ---
Test Reason : Blood Pressure : / mmHG Vent. Rate : 074 BPM Atrial Rate : 074 BPM P-R Int : 148 ms QRS Dur : 088 ms QT Int : 388 ms P-R-T Axes : 070 079 064 degrees QTc Int : 430 ms Normal sinus rhythm Normal ECG When compared with ECG of 10-MAY-2019 20:19, No significant change was found Confirmed by Carlos Eduardo Turner ([id number]) on 05/04/2020 3:16:18 PM Referred By: Min Jones Confirmed By:Chris Turner
--- NOTE | 2020-05-21 10:54 | History & Physical Report ---
Date of Service May 23, 2020 Assessment & Plan (1) Prosthetic knee implant failure: I have indicated the patient for ANITA and revision right total knee replacement. The risks, benefits and complications of surgery were explained to the patient which include but not limited to infection, acute blood loss, DVT/PE, injury to nerves, vessels, bone, soft tissue, arthrofibrosis, chronic pain, failure of the prosthesis, knee dislocation, leg length discrepancy, need for additional surgery, cardiac and pulmonary events and . The patient wished to proceed with surgery and informed consent was obtained at this time. We will plan for Lovenox post-operatively for DVT prophylaxis. Upon discharge the patient will be discharged home with home health services. Appropriate clearances by PCP were obtained. Patient has well established history for mildly elevatd ESR/CRP as noted in medical clearance, patient asymptomatic for UTI. History of Present Illness Chief Complaint: Failed right partial knee replacement Primary Care Provider: Sydnie Rivera The patient is a 59 year old female who presents with failed right partial knee replacement. The patient has PSHx for right medial partial knee arthroplasty on 04/16/[address] Cruz. Sustained a fracture to the medial tibial plateau and underwent subsequent ORIF of right medial tibial plateau on 05/01/19. Xrays of the right knee demonstrates previously healed medial tibial plateau fracture, gross loosening of the medial tibial component of the unicompartmental arthroplasty. The patient has failed outpatient conservative treatments to this point which included NSAIDs, PT and a home exercise program. The patient's pain and limited function have progressed over the last 6 to 9 months to the point where they severely hinder their activities of daily living and they no longer tolerate exercise programs. They are requesting to proceed with revision total knee replacement surgery. Allergies Allergy/AdvReac Type Severity Reaction Status Date / Time No Known Allergies Allergy Verified 05/23/20 10:46 Home Medications Home Medications Medication Instructions Recorded Confirmed Type Caltrate + D3 Plus Minerals 1 tab PO QAM 03/30/19 05/23/20 History alprazolam [Xanax] 0.5 mg PO HS PRN 03/30/19 05/23/20 History cyanocobalamin (vitamin B-12) 1,000 mcg IM MONTHLY 03/30/19 05/23/20 History duloxetine 60 mg PO QAM 03/30/19 05/23/20 History pantoprazole 40 mg PO QAM 03/30/19 05/23/20 History cholecalciferol (vitamin D3) 125 mcg PO QAM 04/26/20 05/23/20 History [Vitamin D3] levothyroxine 88 mcg PO QAM 04/26/20 05/23/20 History sulindac 200 mg PO BID 05/23/20 05/23/20 History Past Med/Surg History Medical History Anxiety Fibromyalgia GERD (gastroesophageal reflux disease) controlled Hypothyroidism Obesity Osteoarthritis Surgical History History of cardiac cath 2016= NO STENTS History of cholecystectomy History of colonoscopy History of hysterectomy PARTIAL HYSTERECTOMY History of right knee surgery Right knee unicompartmental arthroplasty: 04/16/19: SAB x 1 attempt at L3/L4 + PNB at [facility] History of tonsillectomy 08/13/13 - MAC #3, ETT #7.0, Grade 1 View 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 [facility] Family History Other No family history of adverse response to anesthesia No pertinent family history Social History Preferred Language: Irish Communication Ability: Effective Harmonica Maker Required: No Beliefs That Will Affect Care: None marital status: Current Living Situation: Spouse and Family Other Information That Helps Us Care for You: No Feels Safe at Home: Yes Safety Concerns: Feels Safe At This Time Smoking Status: Never smoker Do You Dip or Chew Tobacco: No ; Second Hand Exposure: No ; Tobacco Cessation Education Requested by Patient: No Hx Alcohol Use: No Hx Substance Use: No Review of Systems Review of Systems: All systems reviewed & are unremarkable except as noted in HPI & below Constitutional: as per Subjective / HPI Physical Exam Physical Exam: RLE NVSI +EHL/FHL/TA/GS SILT grossly, +2 DP pulse, compartments soft NT, limited painful ROM of the right knee, 0-125 degrees of flexion, moderate instability. Constitutional: WD/WN, vitals as above Results & Data Results & Data ([facility]) Diagnostic Findings XRs of the right knee demonstrates previously healed medial tibial plateau fracture and well aligned well fixed plate and screws. Gross loosening of the medial tibial component of the unicompartmental arthroplasty with subsidence.
[~2020-05-23 09:58] MED LIST changes: +ACETAMINOPHEN 500 MG TAB PO SCH; +BUPIVACAINE 0.25% 30 ML VIAL ONE; +BUPIVACAINE 0.5 % 5 MG/1 ML PF 10ML VIAL ONE; +CeleBREX 200 MG CAP PO SCH; +FAMOTIDINE 20 MG TAB PO SCH; +GABAPENTIN 600 MG DOSE PO SCH; +METOCLOPRAMIDE HCL 10 MG TABLET PO SCH; -MIDAZOLAM HCL 1 MG/ML 2ML VIAL ONE; +ROPIVACAINE 0.5% HCL/PF 150 MG, BUPIVACAINE 0.5% MPF 30 ML, EPINEPHrine 30MG/30ML (OR U... INSTIL SCH; +TRANEXAMIC ACID 1,000 MG **IV Intra-op IV SCH; +TRANEXAMIC ACID 1,000 MG **IV Pre-op IV SCH; +dexAMETHasone 4 MG TAB PO SCH; -fentaNYL citrate 100 MCG/2 ML VIAL ONE
[2020-05-23] MEDS ORDERED: LIDOCAINE HCL 2% 2 ML VIAL/AMP(20MG/ML) INFIL ONE (11:23)
[2020-05-23] MEDS ORDERED: ONDANSETRON INJ 2 MG/ML 2 ML VIAL ONE (11:23)
[2020-05-23] MEDS ORDERED: PROPOFOL IV EMULSION 10 MG/ML 20 ML VIAL IV ONE ×7 (11:23→16:34)
[2020-05-23] MEDS ORDERED: fentaNYL citrate 100 MCG/2 ML VIAL ONE ×2 (11:24→16:06)
[2020-05-23] MEDS ORDERED: MIDAZOLAM HCL 1 MG/ML 2ML VIAL ONE ×2 (11:24→14:40)
[2020-05-23] MEDS ORDERED: ATROPINE SULFATE 0.1 MG/ML 10ML SYR IV PRN (11:41)
[2020-05-23] MEDS ORDERED: ONDANSETRON INJ 2 MG/ML 2 ML VIAL IV PRN ×2 (11:41→17:32)
[2020-05-23] MEDS ORDERED: ePHEDrine sulfate 50 MG/ML AMP IV PRN (11:41)
[2020-05-23] MEDS ORDERED: fentaNYL citrate 100 MCG/2 ML VIAL IV PRN (11:41)
[2020-05-23] MEDS ORDERED: EPINEPHrine INJ 1 MG/ML AMP ONE (12:00)
--- NOTE | 2020-05-23 12:00 | History & Physical Bridge Note ---
Date of Service May 23, 2020 History & Physical Bridge Note I have examined the patient, reviewed the History & Physical and in the interval since the performance of the History & Physical I have noted the following changes of clinical significance: no changes noted
[2020-05-23] MEDS ORDERED: ORTHO JOINT ANESTHETIC ONE (12:06)
[2020-05-23] MEDS ORDERED: BACITRACIN INJ 50,000 UNIT VIAL ONE ×2 (12:06→12:17)
[2020-05-23] MEDS ORDERED: KETOROLAC 30 MG/ML VIAL ONE (15:35)
--- NOTE | 2020-05-23 15:58 | Post Operative Brief Note ---
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 Post-Op Diagnosis: Failed Right Knee Partial Knee Replacement I identified the patient and participated in the time-out.: Yes Procedure Operation Date: 05/23/20 11:55 Actual Procedures p Right Total Knee Arthroplasty Revision, Hardware Removal(Right) - Min Jones DO Surgeon Min Jones DO Healthcare Management Consultant Ryder Dickens Estimated Blood Loss 225 Findings Consistent with Post-Op Diagnosis Fluids 1500 cc LR Specimens proximal tibia and distal femur bone fragments Anesthesia Type Spinal MAC Complications none Disposition Disposition: Recovery Room Overlapping Procedure I was present for: the critical portions of procedure. I was immediately available: during the entire case. Back up surgeon: was not required during procedure.
--- NOTE | 2020-05-23 16:02 | Operative Report ---
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 Post-Op Diagnosis: Failed Right Knee Partial Knee Replacement I identified the patient and participated in the time-out.: Yes Procedure Operation Date: 05/23/20 11:55 Actual Procedures p Right Total Knee Arthroplasty Revision, Hardware Removal(Right) - Min Jones DO Surgeon Min Jones, Planer [employer] Ryder Dickens Estimated Blood Loss 225 Findings Consistent with Post-Op Diagnosis Fluids 1500 cc LR Specimens Proximal tibia and distal femur bone fragment Anesthesia Type Spinal MAC Complications none Disposition Disposition: Recovery Room Indications The patient is a 59 year old female who presents with failed right partial knee replacement. The patient has PSHx for right medial partial knee arthroplasty on 04/16/[address] Cruz. Sustained a fracture to the medial tibial plateau and underwent subsequent ORIF of right medial tibial plateau on 05/01/19. Xrays of the right knee demonstrates previously healed medial tibial plateau fracture, gross loosening of the medial tibial component of the unicompartmental arthroplasty. The patient has failed outpatient conservative treatments to this point which included NSAIDs, PT and a home exercise program. The patient's pain and limited function have progressed over the last 6 to 9 months to the point where they severely hinder their activities of daily living and they no longer tolerate exercise programs. They are requesting to proceed with revision total knee replacement surgery. I have indicated the patient for ANITA and revision right total knee replacement. The risks, benefits and complications of surgery were explained to the patient which include but not limited to infection, acute blood loss, DVT/PE, injury to nerves, vessels, bone, soft tissue, arthrofibrosis, chronic pain, failure of the prosthesis, knee dislocation, leg length discrepancy, need for additional surgery, cardiac and pulmonary events and . The patient wished to proceed with surgery and informed consent was obtained at this time. We will plan for Lovenox post-operatively for DVT prophylaxis. Upon discharge the patient will be discharged home with home health services. Appropriate clearances by PCP were obtained. Patient has well established history for mildly elevatd ESR/CRP as noted in medical clearance, patient asymptomatic for UTI. Description of Procedure Following induction of spinal anesthesia, a tourniquet was applied to the proximal aspect of the thigh and the patient's right leg was prepped and draped in the usual sterile manner. A timeout was performed and site keith verified. Limb was exsanguinated with an esmarch bandage and tourniquet was inflated to 300 mmHg. The prior incision was identified and a longitudinal midline incision was made over the anterior knee. Previous surgical scar was excised. Subcutaneous tissue was sharply dissected down to fascia. Electrocautery was used for hemostasis. Next a medial parapatellar arthrotomy was performed. Meticulous removal of hypertrophic synovium and scar tissue was removed with Bovie. The patella was subluxed laterally and the knee was flexed. A rodriguez retractor was used to expose the synovium above on the anterior aspect of the femur and removed down to bone. Next, the anterior fat pad was removed to aid in visualization. The medial face of the tibia was cleared of soft tissue first with a bovie and a root elevator. This tissue was retracted posteriorly using a blunt hohmann. Once adequate access was obtained to the total knee prosthesis we removed the tibial articular surface. Next we turned our attention to the femoral component and utilizing a microsagittal saw loosen the interface between the distal femur component and cement followed by flexible osteotomes. Backslapping distal femur extraction instrument was utilized to remove the distal femur, there was minimal bone loss. Meticulous removal of residual cement from the bone was performed. Next we turned our attention to the proximal tibia and utilizing the microsagittal saw the tibial component and cement interface was disrupted followed by flexible osteotomes. Utilizing to flat wide osteotomes we were able to lever the component out of the bone. Once again there was minimal bone loss. Next we meticulously removed remaining cement and cleared the distal femur proximal tibia and any remaining soft tissue. We gained access to both the in tramedullary tibia and femur and intramedullary membrane was scraped with curved curettes. Tissue samples were collected from both the femur and tibia intramedullary canals. Next sequential intramedullary reaming was performed by hand on both the tibia and the femur until adequate bone chatter was appreciated. Reaming was stopped at 14 mm on the tibia and 17 mm on the femur. At this time the tourniquet was dropped at 60 minutes. The intramedullary reamer was left in the tibia and the T-handle was removed. The proximal tibia cutting guide was attached to the reamer and pinned in place. Intramedullary reamer was removed and the proximal tibia was cut removing minimal bone until there was a flat cut perpendicular to the mechanical axis. A 10mm augment cut was made medially. We confirmed the cut with drop kusum and spacer block. Next the proximal tibia was assessed and two bent Hohmanns were placed medial and lateral to aid in visualization. The appropriate tibia size and rotation was selected and a size 4 tibial plate with 10mm medial augment was pinned into place with appropriate rotation. Preparation of the tibia was completed utilizing the matching tibial drill and broach. The trial tibial plate was removed and the trial size 4 tibia with offset 100mm stem with 10mm medial augment attached to the proximal tibia and impacted into place. This provided good fit and fill of the proximal tibia. Next we turned our attention to the distal femur. The appropriate sized intramedullary reamer was inserted and T handle removed. The distal femur cutting guide was then pinned into place. A smooth-walled pin was placed through the anterior holes of the femur guide. The Im reamer was removed and distal femur cut was made. Distal femur cutting guide was removed. Prior to removal of the femoral component we sized the distal femur. Next, a size D 4 in 1 cutting guide was pinned into place. First the anterior cut was made carefully without notching. Next the remaining distal femur cuts were made. Box cut was performed utilizing a reciprocal saw and the pins and box cut guide were removed. The final trial size D femur with [id number] fluted stem was inserted. A 10mm PS tibial articular surface was trialed. Sequential trialing of tibial sizes was performed, increasing to a tibial articular surface size 12 mm. Varus-valgus balance was assessed in 0 degrees of extension and 30, 60 and 90 degrees of flexion. A final tibial articular surface size 12mm LCCK was chosen. Assess was gained to the patella and caliper utilized to measure width. The pa tella reamer was utilized and remaining bone removed with oscillating saw. A size 32 mm patella button was selected and the patella pegs drilled. Trial patella button was placed and tracking was assessed. The knee was found to be well balanced, well aligned with excellent patella tracking. The leg was rewrapped with new Esmarch and tourniquet inflated once again at this time. The trials were removed and final components were obtained and assembled on the back table. [employer] was utilized for any bleeders and Orthomix solution injected into the posterior capsule. The knee was irrigated with copious amounts of sterile saline solution mixed with bacitracin. Access to the proximal tibia was once again obtained utilizing two bent hohmann retractors and the proximal tibia and distal femur were dried with lap sponges. The final components were cemented into place utilizing Palacos cement and all excess cement was removed. A trial tibial articular surface was placed while cemented hardened. Knee stability was once again assessed and the final tibial articular surface inserted. The knee was injected with the remaining Orthomix solution. A Betadine soak was performed for 3 minutes and the knee was irrigated once more with sterile saline solution mixed with bacitracin. Hemovac drain was placed deep to fascia. The capsulotomy was closed with #1 Vicryl followed by subcutaneous closure with 2-0 Vicryl suture. Skin closure was performed using prateek, sterile dressings were applied which included 4x4s, ABDs, Webril and Parker wrap. Tourniquet was released at 104 minutes, 164 total minutes for the case. The patient tolerated the procedure well and was transported to PACU in stable condition. Due to the complex nature of the procedure, the entire surgery was performed with the operational assistance of Ryder Dickens PA-C. The assistant import manager, under direct supervision, was involved in the actual performance of all aspects of the surgical procedure including patient positioning, hemostasis, tissue retraction, instrument management and wound closure. I attest to the content of the Intraoperative Record and any orders documented therein. Any exceptions are noted below.
--- NOTE | 2020-05-23 17:18 | Anesthesiology Progress Note ---
Date of Service May 23, 2020 Anesthesia Post Procedure Vital Signs Vital Signs: Temp Pulse Pulse Resp BP BP Pulse Ox 05/23/20 17:10 74 17 151/94 H 100 05/23/20 17:02 36.1 C L 75 12 168/94 H 94 05/23/20 12:40 73 12 145/75 H 100 05/23/20 12:31 57 L 12 123/68 100 05/23/20 11:54 36.7 C 61 20 158/88 H 100 05/23/20 10:52 36.8 C 66 20 169/98 H 99 Transfer of Care Handoff Completed per policy Notes Mental Status: alert / awake / arousable Patient Amnestic to Procedure: Yes Nausea / Vomiting: adequately controlled Pain: adequately controlled Airway Patency, RR, SpO2: stable & adequate BP & HR: stable & adequate Hydration State: stable & adequate Neuraxial Anesthesia: was administered and sensory block is resolving Anesthetic Complications: no major complications apparent
--- NOTE | 2020-05-23 17:31 | XRay Report ---
XR knee RT 1 or 2V routine CLINICAL HISTORY: Surgical Post Op COMPARISON: 04/16/2019 DISCUSSION: There are postsurgical changes of a longstem total right knee arthroplasty with patellar resurfacing. Overlying skin prateek and surgical drains are evident. There is gas in the soft tissues consistent with recent surgery. No fractures or dislocations are visualized. IMPRESSION: Postsurgical changes of a total right knee arthroplasty. ACT 112: Negative or not required by law. Electronically signed by: Agustin Eastman M.D. 05/23/2020 5:30 PM
[2020-05-23] MEDS ORDERED: bisacodyL 10 MG SUPP PR PRN (17:32)
[2020-05-23] MEDS ORDERED: METOCLOPRAMIDE HCL INJ 5 MG/ML 2 ML VIAL IV PRN (17:32)
[2020-05-23] MEDS ORDERED: NALOXONE HCL 0.4 MG/1 ML VIAL/CARP IV PRN (17:32)
[2020-05-23] MEDS ORDERED: HYDROmorphone INJ 0.5 MG/0.5 ML SYR IV PRN (17:32)
[2020-05-23] MEDS ORDERED: ALPRAZolam 0.5 MG TABLET PO PRN (17:32)
[2020-05-23] MEDS ORDERED: MAGNESIUM HYDROXIDE SUSP 30 ML UDC PO PRN (17:32)
--- NOTE | 2020-05-23 18:37 | Orthopedic Progress Note ---
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 Review of Systems Review of Systems: All systems reviewed & are unremarkable except as noted in HPI & below Constitutional: as per Subjective / HPI Physical Exam Physical Exam: RLE NVSI +EHL/FHL/TA/GS SILT grossly, +2 DP pulse, compartments soft NT, dressing cdi. Constitutional: WD/WN, vitals as above Results & Data ([facility]) Vital Signs (Past 12 Hours) Vital Signs Temp Pulse Pulse Resp BP BP Pulse Ox 05/23/20 18:22 18 153/95 H 97 05/23/20 17:20 36.2 C L 67 16 148/91 H 94 05/23/20 17:10 74 17 151/94 H 100 05/23/20 17:02 36.1 C L 75 12 168/94 H 94 05/23/20 12:40 73 12 145/75 H 100 05/23/20 12:31 57 L 12 123/68 100 05/23/20 11:54 36.7 C 61 20 158/88 H 100 05/23/20 10:52 36.8 C 66 20 169/98 H 99
[2020-05-23] MEDS ORDERED: SODIUM CHLORIDE 0.9% 1000ML 1,000 ML IV SCH (19:00)
[2020-05-23] MEDS: OXYCODONE HCL IR 5 MG TAB (IMMEDIATE RELEASE) PO PRN (19:41)
[2020-05-23] MEDS: CEFAZOLIN 2000MG 2,000 MG/15 ML SYR IV SCH (19:41)
[2020-05-23] MEDS ORDERED: SENNA 8.6 MG TAB PO SCH (21:00)
[2020-05-23] MEDS: ACETAMINOPHEN 500 MG TAB PO SCH (21:08)
[2020-05-23] MEDS: DOCUSATE SODIUM 100 MG CAP PO SCH (21:08)
[2020-05-24] MEDS: OXYCODONE HCL IR 5 MG TAB (IMMEDIATE RELEASE) PO PRN ×3 (00:25→12:44)
[2020-05-24] MEDS: CEFAZOLIN 2000MG 2,000 MG/15 ML SYR IV SCH (03:04)
[2020-05-24] MEDS: ACETAMINOPHEN 500 MG TAB PO SCH ×2 (05:17→13:33)
[2020-05-24 05:37] LABS: Hematocrit (blood only) 30.6 % (37-47); Hemoglobin 10.3 g/dL (12.0-16.0); Mean Corpuscular Hemoglobin 28.8 pg (25-34); Mean Corpuscular Hgb Conc 33.7 g/dL (32-36); Mean Corpuscular Volume 85.5 fL (80-100); Mean Platelet Volume 9.5 fL (7.4-10.4); Platelet Count 267 K/uL (130-400); RDW Coefficient of Variation 13.2 % (11.5-14.5); RDW Standard Deviation 40.9 fL (36.4-46.3); Red Blood Count 3.58 M/uL (4.2-5.4); White Blood Count 11.79 K/uL (4.8-10.8)
[2020-05-24 05:59] LABS: BUN Creatinine Ratio 17.3 (10-20); Creatinine Clr Calc Pharmacy 87.9 ml/min; Est GFR (African American) 92.1; Est GFR (Non-African American) 79.4; Potassium 3.8 mmol/L (3.5-5.1)
[2020-05-24] MEDS ORDERED: ROPIVACAINE 0.5% HCL/PF 150 MG, BUPIVACAINE 0.5% MPF 30 ML, EPINEPHrine 0.15 MG, Ketoro... INFIL SCH (06:00)
[2020-05-24] MEDS ORDERED: LEVOTHYROXINE SODIUM 88 MCG TABLET PO SCH (06:30)
--- NOTE | 2020-05-24 07:29 | Orthopedic Progress Note ---
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 Denies F/C/N/V/SOB/CP. Review of Systems Review of Systems: All systems reviewed & are unremarkable except as noted in HPI & below Constitutional: as per Subjective / HPI Physical Exam Physical Exam: RLE NVSI +EHL/FHL/TA/GS SILT grossly, +2 DP pulse, compartments soft NT, dressing cdi. Drain intact Constitutional: WD/WN, vitals as above Results & Data ([facility]) Vital Signs (Past 12 Hours) Vital Signs Temp Pulse Resp BP Pulse Ox 05/24/20 03:10 36.7 C 71 16 115/75 93 05/23/20 23:07 36.5 C 66 16 128/75 95 Laboratory Results 05/24/20 05/24/20 05/23/20 Range/Units 05:07 05:07 10:37 WBC 11.79 H (4.8-10.8) K/uL RBC 3.58 L (4.2-5.4) M/uL Hgb 10.3 L (12.0-16.0) g/dL Hct 30.6 L (37-47) % MCV 85.5 (80-100) fL MCH 28.8 (25-34) pg MCHC 33.7 (32-36) g/dL RDW Std Deviation 40.9 (36.4-46.3) fL RDW Coeff of Malia 13.2 (11.5-14.5) % Plt Count 267 (130-400) K/uL MPV 9.5 (7.4-10.4) fL Sodium 142 (136-145) mmol/L Potassium 3.8 (3.5-5.1) mmol/L Chloride 110 H (98-107) mmol/L Carbon Dioxide 26 (21-32) mmol/L Anion Gap 6.0 (3-11) BUN 14 (7-18) mg/dl Creatinine 0.82 (0.6-1.2) mg/dl Est Cr Clr Drug Dosing 87.9 ml/min Est GFR ( Amer) 92.1 Est GFR (Non-Af Amer) 79.4 BUN/Creatinine Ratio 17.3 (10-20) Glucose 118 H (70-99) mg/dl Calcium 8.0 L (8.5-10.1) mg/dl Blood Type A Negative Antibody Screen NEGATIVE Crossmatch See Detail
[2020-05-24] MEDS: DOCUSATE SODIUM 100 MG CAP PO SCH (08:43)
[2020-05-24] MEDS ORDERED: MULTIVITAMIN TAB PO SCH (09:00)
[2020-05-24] MEDS ORDERED: PANTOprazole 40 MG TAB PO SCH (09:00)
[2020-05-24] MEDS ORDERED: ENOXAPARIN INJ 40 MG/0.4 ML SYR SQ SCH (09:00)
[2020-05-24] MEDS ORDERED: DULOXETINE HCL 60 MG CAP PO SCH (09:00)
--- NOTE | 2020-05-24 12:30 | Discharge Summary ---
Date of Service May 24, 2020 Admission HPI Per Admitting Provider The patient is a 59 year old female who presents with failed right partial knee replacement. The patient has PSHx for right medial partial knee arthroplasty on 04/16/[address] Cruz. Sustained a fracture to the medial tibial plateau and underwent subsequent ORIF of right medial tibial plateau on 05/01/19. Xrays of the right knee demonstrates previously healed medial tibial plateau fracture, gross loosening of the medial tibial component of the unicompartmental arthroplasty. The patient has failed outpatient conservative treatments to this point which included NSAIDs, PT and a home exercise program. The patient's pain and limited function have progressed over the last 6 to 9 months to the point where they severely hinder their activities of daily living and they no longer tolerate exercise programs. They are requesting to proceed with revision total knee replacement surgery. Principal Diagnosis Revision right total knee replacement, removal of hardware -Failed right unicompartmental knee replacement Discharge Exam RLE NVSI +EHL/FHL/TA/GS SILT grossly, +2 DP pulse, compartments soft NT, dressing cdi. Constitutional WD/WN, vitals as above Discharge Data Allergies Allergy/AdvReac Type Severity Reaction Status Date / Time No Known Allergies Allergy Verified 05/23/20 10:46 Consultations 05/23/20 17:32 Consult Case Management - Discharge Planning Routine Procedures Performed Operation Date: 05/23/20 11:55 Actual Procedures p Right Total Knee Arthroplasty Revision, (Right) - Min Jones DO s Removal Hardware(Right) - Min Jones DO Ordered Studies 05/23/20 05:00 US - OR guided needle placemen Routine Hospital Course (1) Prosthetic knee implant failure: The patient is a 59 -year-old female who presents with failed right unicompartmental knee replacement and failed outpatient conservative treatments. The patient's symptoms have progressed to the point where it has been difficult to perform even normal activities of daily living. I indicated the patient for a ANITA, revision right total knee arthroplasty, the risks, benefits and complications of the procedure include but not limited to infection, bleeding, damage to bone, nerves, vessels, surrounding soft tissue, may develop blood clots, loss of function, leg length discrepancy, dislocation, failure of the components, loosening of the components, the need for additional surgery and . The patient wished to proceed with surgery at this time and informed consent was obtained. Hospital Course: On 05/23/20 the patient was taken to the operating room, adequate anesthesia administered and underwent ANITA, revision right total knee arthroplasty. The patient tolerated the procedure well and was taken to the PACU in stable condition. Post-operatively the patient was started on a DVT ppx medication and given appropriate IV antibiotics. Consults were placed to physical therapy, occupational therapy and case management. On POD#1, the patient did well overnight and their pain was well controlled. Labs were drawn and the Hgb was 10.3. The patient progressed well with PT. Dressings were changed at this time and the incision was clean, dry and intact. The patients hospital stay was relatively uneventful and they were deemed stable by the orthopedic team and consultants to be discharged home with OP PT on 05/24/20. Discharge Instructions: Upon discharge the patient may weight bear as tolerates through their operative extremity. They were instructed to keep the incision clean and dry at all times. The patient may shower but should not submerge the incision, avoid bathing, pools and hot tubes. The patient was given a script for pain medication and should take as instructed. The patient was given a script for DVT ppx Lovenox 40mg daily and should take as directed. The patient was instructed to not drive or travel for long distances until cleared to do so. If the patient develops any symptoms of fevers, chills, nausea, vomiting, increased redness, swelling, pain or drainage from the surgical site, they should notify the office and/or proceed to the nearest emergency room. The patient should follow up in 10-14 days after surgery for their routine post-operative follow-up appointment and should call the office to confirm the date and time. s/p R ANITA, revision R TKA POD#1 -ancef x 24 -DVT ppx: SCDs, TEDs, Lovenox -WBAT RLE -PT/OT -PO XR demonstrates well aligned well fixed prothesis without fracture/dislocation -am labs - as above, hgb 10.3 -DC planning - Home with OP PT Total Time Total Time Spent Total Time Spent (In Minutes): 30 Discharge Plan Discharge Items Patient Disposition: Home - Home Health Services Reason For Visit: RIGHT KNEE DEGENERATIVE JOINT DISEASE, PAINFUL ANJELICA Discharge Diagnosis: Revision right total knee replacement, removal of hardware -failed right knee unicompartmental knee replacement Condition on Discharge: Good Activity: Per Instructions section Lifting: Wait until after follow-up appointment Bathing: Keep incision dry Bathing Comment: No bathing, pools or hot tubs. Sexual Activity: Wait until after follow-up appointment Exercise/Sports: Wait until after follow-up appointment Driving/Machine Use: No driving Weightbearing: Full weightbearing Non-emergency contact: Primary Care Provider and Surgeon Call non-emergency contact if: you have any medication questions, your symptoms worsen, your pain is not controlled, your pain is worsening, your pain is unusual for you, your pain is concerning for you, you have a fever, your temperature is above 101, your wound has increased redness, your wound has increased drainage and your wound pain has increased Follow-up/Referrals: Sydnie Rivera [Primary Care Provider] - Diet: Regular Addtl Attending Provider Instructions: ACTIVITY RECOMMENDATIONS: SELF CARE INSTRUCTIONS AFTER REVISION TOTAL KNEE REPLACEMENT A. You may need to continue a physical therapy program after discharge from the hospital. There are several options available to you. Your doctor will assist you in selecting the best one for you. 1. An out-patient facility 2 to 3 times a week for therapy or home therapy. 2. Continue working on all exercises taught to you in the hospital. Your goals should be to increase bending of your knee to 90 degrees and beyond and to fully straighten your knee. B. You may progress at your own pace from walking with a walker or crutches to a cane; then to no assistive devices. C. Make walking a part of your daily routine. Be up as much as comfortable with rest periods throughout the day. Rest with leg elevation is very important. Use the ice wrap frequently for the first 3-4 weeks. D. There are no restrictions on activities. You may ride in a car, shop, participate in android ios developer and all social activities. E. Wear the long elastic stockings (JEWEL hose) 20 hours a day for 2 weeks after surgery. They can be removed several times a day for laundering and for a bath. F. You may shower, no tub baths until cleared by your doctor. SPECIAL CARE INSTRUCTIONS: VERY IMPORTANT TO READ AND REVIEW A. There are a few signs you need to watch for after you are home. Call [facility] if you notice any of the followin. Increased severe knee pain. Some pain is expected especially when you exercise. 2. Increased swelling in your leg or knee; pain or swelling of the calf muscle in either lower leg. 3. Any fluid drainage from the incision. 4. Shortness of breath or chest pain. B. Please call [facility] at if you have any concerns or questions about your operation or recovery. The doctor or his nurse will return your call promptly. C. You must take antibiotics before dental work, bladder, bowel or other surgery. Your doctor will provide you with a permanent care to carry describing this precaution. IMPORTANT: * REMEMBER TO TAKE LOVENOX 40MG DAILY FOR 4 WEEKS UNLESS OTHERWISE DIRECTED. THIS IS YOUR BLOOD THINNER. * HIGH RISK PATIENTS MAY BE PRESCRIBED A STRONGER BLOOD THINNER. THIS WILL BE PROVIDED AT DISCHARGE. * CALL IF INCREASED PAIN, REDNESS, DRAINAGE OR FEVER GREATER THAT 101. * WEAR JEWEL HOSE 20 HOURS PER DAY FOR 2 WEEKS. * YOU MAY HAVE A LARGE BAND-AID LIKE DRESSING (SILVERON). THIS WILL REMAIN ON YOUR INCISION FOR 7 DAYS, THEN CAN BE REMOVED. IF INCISION IS LEAKING THROUGH DRESSING, CALL THE OFFICE . FOLLOW UP VISIT: If appointment is not already scheduled: Please call [facility] to make a follow-up appointment for 2 weeks after your surgery at . Pending Studies at Discharge: No Stand-Alone Forms: My [facility] Yoostay, Smoking Cessation Medications and DC Order Prescriptions: New acetaminophen 500 mg Tablet 1,000 mg PO Q8 PRN (Reason: PAIN/FEVER) Qty: 90 RF: 0 oxycodone 5 mg Tablet 5 mg PO Q6H MDD 4 PRN (Reason: pain) Qty: 30 RF: 0 enoxaparin 40 mg/0.4 mL Syringe 40 mg subcut Q24H Qty: 28 RF: 0 sennosides [Senokot] 8.6 mg Tablet 17.2 mg PO HS PRN (Reason: CONSTIPATION) Qty: 28 RF: 0 Continued alprazolam [Xanax] 0.5 mg Tablet 0.5 mg PO HS PRN (Reason: Anxiety) RF: 0 pantoprazole 40 mg Tablet,Delayed Release (Dr/Ec) 40 mg PO QAM RF: 0 duloxetine 60 mg Capsule,Delayed Release(Dr/Ec) 60 mg PO QAM RF: 0 Caltrate + D3 Plus Minerals 300 mg-800 unit -25 mg-0.5 mg Tablet 1 tab PO QAM RF: 0 cyanocobalamin (vitamin B-12) 1,000 mcg/mL Kit 1,000 mcg IM MONTHLY RF: 0 levothyroxine 88 mcg Tablet 88 mcg PO QAM RF: 0 cholecalciferol (vitamin D3) [Vitamin D3] 125 mcg (5,000 unit) Tablet 125 mcg PO QAM RF: 0 Discontinued sulindac 200 mg Tablet 200 mg PO BID RF: 0 Discharge Orders: Discharge Order (Routine); Ordered 05/24/20 Ordered By: Min Forrester/Other Patient Handouts: Enoxaparin injection Admission Data Admit Date/Time: 05/23/20 17:03 Attending Provider: Min Jones Admit Provider: Min Jones Primary Care Provider: Sydnie Rivera Other Interventions: Discharge Summary Assessment (RN) Last Done: 05/24/20 14:21 DC Date/Time DO NOT enter until pt leaves facility: 05/24/20 15:32
== END 2020-05-24 15:32 | disposition home or self-care (01) | DRG 468 ==
LOC: ASU 09:58 → 3E 17:03

== ENCOUNTER 2021-04-10 05:20 | Inpatient (IN) ==
--- NOTE | 2021-03-24 16:14 | PAT Medication Instructions ---
Medication Instructions Date of Service March 24, 2021 Home Medications Medication Instructions Recorded acetaminophen 1,000 mg PO Q8 PRN #90 tab 05/23/20 oxycodone 5 mg PO Q6H PRN #30 tab MDD 4 05/23/20 sennosides [Senokot] 17.2 mg PO HS PRN #28 tab 05/23/20 Caltrate + D3 Plus Minerals 1 tab PO QAM alprazolam [Xanax] 0.5 mg PO HS cyanocobalamin (vitamin B-12) 1,000 mcg IM MONTHLY duloxetine 60 mg PO QAM pantoprazole 40 mg PO QAM cholecalciferol (vitamin D3) [Vitamin D3] 125 mcg PO QAM levothyroxine 88 mcg PO QAM acetaminophen 1,000 mg PO Q8 PRN oxycodone 5 mg PO Q6H PRN sennosides [Senokot] 17.2 mg PO HS PRN potassium 99 mg PO Q OTHER DAY Continue as directed cyanocobalamin (vitamin B-12) 1,000 mcg IM MONTHLY DO NOT take the morning of surgery Caltrate + D3 Plus Minerals 1 tab PO QAM cholecalciferol (vitamin D3) [Vitamin D3] 125 mcg PO QAM potassium 99 mg PO Q OTHER DAY Take morning of surgery With a small sip of water, OTHERWISE NOTHING TO EAT OR DRINK AFTER MIDNIGHT: duloxetine 60 mg PO QAM pantoprazole 40 mg PO QAM levothyroxine 88 mcg PO QAM acetaminophen 1,000 mg PO Q8 PRN (okay to take up to 4 hours prior to surgery if needed) oxycodone 5 mg PO Q6H PRN (okay to take up to 4 hours prior to surgery if needed) Take evening before surgery alprazolam [Xanax] 0.5 mg PO HS acetaminophen 1,000 mg PO Q8 PRN (if needed) oxycodone 5 mg PO Q6H PRN (if needed) sennosides [Senokot] 17.2 mg PO HS PRN (if needed) Other Notes If you have any questions please call us at [phone] or [phone] or [phone] or [phone]
--- NOTE | 2021-03-30 14:08 | Anesthesiology Consultation ---
Date of Service March 30, 2021 Assessment & Plan (1) Encounter for pre-operative examination: Chart Review Chart Review: Acceptable Risk for Surgery (pending preop Covid testing ) and Patient seen in Pre Admission Testing Per [facility] appt on 03/29/21, patient denies any recent travel. No known Covid positive contacts or Covid related symptoms. No known Covid infection in the past 90 days. Preop Covid testing 04/06/21=will await results. Educated on importance of self quarantining, social distancing and wearing mask in public both for the patient and household contacts. Seen by PCP 03/03/21= seen for regular medical follow up appointment. "Pt is cleared for proposed knee surgery" Right TKArevision 05/23/2020 = SAB done at L3-4 with 1 attempt. Teaching & Discussion Pre-Anesthesia Teaching/Discussion Notes: Instructed NPO after midnight before surgery,except medications with 15 cc of water. Medication instructions provided according to the [facility] guidelines. History Surgery Operation Date: 04/10/21 12:20 Proposed Procedures p Left Total Knee Arthroplasty - Min Jones DO Height/Weight Height: 5 ft 7 in Weight: 95.8 kg Allergies Allergy/AdvReac Type Severity Reaction Status Date / Time No Known Allergies Allergy Verified 03/16/21 11:50 Medications Home Medications Medication Instructions Recorded Confirmed Last Taken Caltrate + D3 Plus Minerals 1 tab PO QAM 03/30/19 03/16/21 1 Week Ago ~05/16/20 alprazolam [Xanax] 0.5 mg PO HS 03/30/19 03/16/21 05/22/20 20:30 cyanocobalamin (vitamin B-12) 1,000 mcg IM MONTHLY 03/30/19 03/16/21 05/18/20 duloxetine 60 mg PO QAM 03/30/19 03/16/21 05/23/20 08:30 pantoprazole 40 mg PO QAM 03/30/19 03/16/21 05/23/20 08:30 cholecalciferol (vitamin D3) 125 mcg PO QAM 04/26/20 03/16/21 1 Week Ago [Vitamin D3] ~05/16/20 levothyroxine 88 mcg PO QAM 04/26/20 03/16/21 05/23/20 07:30 acetaminophen 1,000 mg PO Q8 PRN #90 tab 05/23/20 03/16/21 Unknown oxycodone 5 mg PO Q6H PRN #30 tab MDD 4 05/23/20 03/16/21 Unknown sennosides [Senokot] 17.2 mg PO HS PRN #28 tab 05/23/20 03/16/21 Unknown potassium 99 mg PO Q OTHER DAY 03/16/21 03/16/21 Unknown Past Medical History Medical History Anxiety Stable Fibromyalgia Stable GERD (gastroesophageal reflux disease) controlled History of COVID-06 Oct 2020 Hypothyroidism Obesity Osteoarthritis Exercise / Class Metabolic Activity II 4-5 Yardwork/Stairs/Walk up hill (one flight of stairs - no chest pain or SOB ) Past Family History Family History Father Diabetes Other No family history of adverse response to anesthesia Past Surgical History Surgical History History of cardiac cath 2016= NO STENTS History of cholecystectomy History of colonoscopy History of hysterectomy PARTIAL HYSTERECTOMY History of right knee surgery Right knee unicompartmental arthroplasty: 04/16/19: SAB x 1 attempt at L3/L4 + PNB at [facility] History of tonsillectomy 08/13/13 - MAC #3, ETT #7.0, Grade 1 View History of total knee replacement right 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 [facility] > due to fall Past Anesthesia History No Hx of Anesthesia Complications and No Family Hx of Anesthesia Complications History of PONV No Hx of PONV and No Hx of Motion Sickness Social History Smoking Status: Never smoker Do You Dip or Chew Tobacco: No Hx Alcohol Use: No Hx Substance Use: No substance use type: does not use Review of Systems Hx of snoring - no witnessed apnea- no hx of sleep study Patient denies chest pain, shortness of breath, dyspnea on exertion, cough, wheezing, palpitations. No hx of seizures, stroke, AR. No hx of blood clots or blood transfusions Physical Exam Vital Signs VITALS BP 122/87 P 78 TEMP 98.2 SP02 98% RESP 16 Constitutional no acute distress ENMT Mouth: no TMJ clicking Thyromental Distance: < 3.5 Finger Breadths (2.5) Mallampati Class: I Neck neck extension not limited Respiratory normal respiratory effort; no respiratory distress Auscultation: lungs clear to auscultation bilaterally; no wheezes Cardiovascular Rate/Rhythm: regular rate and regular rhythm Heart Sounds: no murmur Vessels: no carotid bruit Musculoskeletal Spine: no pain with cervical ROM Extremities: extremities normal to inspection Psychiatric Orientation: alert Testing Laboratory Results 03/30/21 14:16 03/30/21 14:16 PT 9.9 Seconds (9.0-12.0) 03/30/21 14:16 INR 1.0 (0.9-1.1) 03/30/21 14:16 APTT 23.9 Seconds (21.0-31.0) 03/30/21 14:16 Hemoglobin A1c 5.2 % (4.5-5.6) 03/30/21 14:16 Urine Color Yellow 03/30/21 Unknown Urine Appearance Clear (Clear) 03/30/21 Unknown Urine pH 6.5 (4.5-7.5) 03/30/21 Unknown Ur Specific [place] 1.010 (1.000-1.030) 03/30/21 Unknown Urine Protein Negative (Negative) 03/30/21 Unknown Urine Glucose (UA) Negative (Negative) 03/30/21 Unknown Urine Ketones Negative (Negative) 03/30/21 Unknown Urine Nitrite Negative (Negative) 03/30/21 Unknown Ur Leukocyte Esterase Negative (Negative) 03/30/21 Unknown Blood Type A Negative 03/30/21 14:16 Antibody Screen NEGATIVE 03/30/21 14:16 Electrocardiogram Date: 03/30/21 SR with PACs at 72bpm Otherwise normal EKG per cardio. Chest X-Ray Date: 03/30/21 Findings: + NAD
--- NOTE | 2021-03-30 14:53 | XRay Report ---
XR chest Pre-admission PA/Lat CLINICAL HISTORY: Preoperative evaluation. COMPARISON STUDY: Chest radiograph May 03, 2020. FINDINGS: Lung volumes are normal. Lungs are clear. There is no pneumothorax or pleural effusion. Car diac size is normal. Mediastinal contours are normal. There is no evidence for pulmonary edema. IMPRESSION: No acute cardiopulmonary findings. ACT 112: Negative or not required by law. Electronically signed by: Jered Haque M.D. 03/30/2021 2:52 PM
[2021-03-30 15:18] LABS: Basophils # (auto) 0.02 K/uL (0-0.2); Basophils % (auto) 0.3 %; Eosinophils # (auto) 0.14 K/uL (0-0.5); Eosinophils % (auto) 2.2 %; Hemoglobin 12.3 g/dL (12.0-16.0); Immature Granulocytes # (auto) 0.02 K/uL (0.00-0.02); Immature Granulocytes % (auto) 0.3 %; Lymphocytes # (auto) 1.86 K/uL (1.2-3.4); Mean Corpuscular Hemoglobin 28.2 pg (25-34); Mean Corpuscular Hgb Conc 33.2 g/dL (32-36); Mean Corpuscular Volume 84.9 fL (80-100); Mean Platelet Volume 9.2 fL (7.4-10.4); Monocytes # (auto) 0.46 K/uL (0.11-0.59); Monocytes % (auto) 7.2 %; Neutrophils # (auto) 3.91 K/uL (1.4-6.5); Platelet Count 269 K/uL (130-400); RDW Coefficient of Variation 13.5 % (11.5-14.5); RDW Standard Deviation 41.5 fL (36.4-46.3); Red Blood Count 4.36 M/uL (4.2-5.4); White Blood Count 6.41 K/uL (4.8-10.8)
[2021-03-30 15:29] LABS: Partial Thromboplastin Ratio 0.9; Partial Thromboplastin Time 23.9 Seconds (21.0-31.0); Prothrombin Time 9.9 Seconds (9.0-12.0)
[2021-03-30 15:36] LABS: Appearance Urine Clear (Clear); Bilirubin Urine Negative (Negative); Blood Urine Negative (Negative); Color Urine Yellow; Glucose Urine UA Negative (Negative); Ketones Urine Negative (Negative); Leukocyte Esterase Urine Negative (Negative); Nitrite Urine Negative (Negative); Protein Urine Negative (Negative); Urobilinogen Urine Negative (Negative); pH Urine 6.5 (4.5-7.5)
[2021-03-30 16:23] LABS: Albumin Level 3.6 gm/dl (3.4-5.0); BUN Creatinine Ratio 20.6 (10-20); Calcium 9.5 mg/dl (8.5-10.1); Creatinine Clr Calc Pharmacy 82.8 ml/min; Est GFR (African American) 83.9 ml/min; Est GFR (Non-African American) 72.4 ml/min; Potassium 4.2 mmol/L (3.5-5.1)
--- NOTE | 2021-03-31 06:21 | Electrocardiogram Report ---
Test Reason : Blood Pressure : / mmHG Vent. Rate : 072 BPM Atrial Rate : 072 BPM P-R Int : 136 ms QRS Dur : 084 ms QT Int : 396 ms P-R-T Axes : 060 085 075 degrees QTc Int : 433 ms Sinus rhythm with Premature atrial complexes Otherwise normal ECG When compared with ECG of 03-MAY-2020 14:48, Premature atrial complexes are now Present Confirmed by Garland Jacobo ([id number]) on 03/31/2021 6:21:27 AM Referred By: Min Jones Confirmed By:Garland Jacobo
[2021-03-31 07:09] LABS: Estimated Average Glucose 103 mg/dl; Hemoglobin A1C 5.2 % (4.5-5.6)
--- NOTE | 2021-04-09 09:19 | History & Physical Report ---
Date of Service April 10, 2021 Assessment & Plan (1) Degenerative joint disease of left knee: I have indicated the patient for left total knee replacement. The risks, benefits and complications of surgery were explained to the patient which include but not limited to infection, acute blood loss, DVT/PE, injury to nerves, vessels, bone, soft tissue, arthrofibrosis, chronic pain, failure of the prosthesis, knee dislocation, leg length discrepancy, need for additional surgery, cardiac and pulmonary events and . The patient wished to proceed with surgery and informed consent was obtained at this time. We will plan for 81mg ASA BID post-operatively for DVT prophylaxis. Upon discharge the patient will be discharged home with home health services. Appropriate clearances by PCP were obtained. The patient is asymptomatic for UTI. History of Present Illness Chief Complaint: Left knee pain/DJD Primary Care Provider: JESSICA England The patient is a 60 year old female who presents with complaints of severe left knee pain and DJD. The patient has failed outpatient conservative treatments to this point which included NSAIDs, IA corticosteroid and SALINAS injections, bracing, PT/HEP. The patient's pain and limited function have progressed to the point where they severely hinder their activities of daily living and they no longer tolerate exercise programs. They are requesting to proceed with total knee replacement surgery. Allergies Allergy/AdvReac Type Severity Reaction Status Date / Time No Known Allergies Allergy Verified 03/16/21 11:50 Home Medications Medication Instructions Recorded Confirmed Type Caltrate + D3 Plus Minerals 1 tab PO QAM 03/30/19 04/10/21 History alprazolam [Xanax] 0.5 mg PO HS 03/30/19 04/10/21 History cyanocobalamin (vitamin B-12) 1,000 mcg IM MONTHLY 03/30/19 04/10/21 History duloxetine 60 mg PO QAM 03/30/19 04/10/21 History pantoprazole 40 mg PO QAM 03/30/19 04/10/21 History cholecalciferol (vitamin D3) 125 mcg PO QAM 04/26/20 04/10/21 History [Vitamin D3] levothyroxine 88 mcg PO QAM 04/26/20 04/10/21 History acetaminophen 1,000 mg PO Q8 PRN #90 tab 05/23/20 04/10/21 Rx oxycodone 5 mg PO Q6H PRN #30 tab MDD 4 05/23/20 04/10/21 Rx sennosides [Senokot] 17.2 mg PO HS PRN #28 tab 05/23/20 04/10/21 Rx potassium 99 mg PO Q OTHER DAY 03/16/21 04/10/21 History Past Med/Surg History Medical History Anxiety Stable Fibromyalgia Stable GERD (gastroesophageal reflux disease) controlled History of COVID-06 Oct 2020 Hypothyroidism Obesity Osteoarthritis Surgical History History of cardiac cath 2016= NO STENTS History of cholecystectomy History of colonoscopy History of hysterectomy PARTIAL HYSTERECTOMY History of right knee surgery Right knee unicompartmental arthroplasty: 04/16/19: SAB x 1 attempt at L3/L4 + PNB at [facility] History of tonsillectomy 08/13/13 - MAC #3, ETT #7.0, Grade 1 View History of total knee replacement right 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 [facility] > due to fall Family History Father Diabetes Other No family history of adverse response to anesthesia Social History Smoking Status: Never smoker Second Hand Exposure: No; Do You Dip or Chew Tobacco: No; Tobacco Cessation Education Requested by Patient: No Hx Alcohol Use: No Hx Substance Use: No Preferred Language: Lao Communication Ability: Effective Surgical Oncologist Required: No Beliefs That Will Affect Care: None marital status: Current Living Situation: Spouse and Family Other Information That Helps Us Care for You: No Feels Safe at Home: Yes Safety Concerns: Feels Safe At This Time Assistive Devices: Glasses Review of Systems Review of Systems: All systems reviewed & are unremarkable except as noted in HPI & below Constitutional: as per Subjective / HPI Physical Exam Physical Exam: LLE NVSI +EHL/FHL/TA/GS SILT grossly, +2 DP pulse, compartments soft NT, limited painful ROM of the knee, 0-115 degrees of flexion, + crepitus. Constitutional: WD/WN, vitals as above Eyes: PERRL, conjunctivae normal, anicteric sclerae ENMT: external ear and nose normal, oropharynx normal Neck: trachea midline, no thyromegaly Respiratory: normal respiratory effort, lungs clear to auscultation Cardiovascular: RRR, no murmur, no edema Gastrointestinal (Abdomen): normal bowel sounds, soft, nontender, no hepa tosplenomegaly Musculoskeletal: no cyanosis or clubbing, extremities motor strength 5/5 Skin: no rashes, warm and dry Neurologic: patellar DTR's 2+ bilat, sensation intact Psychiatric: A+Ox3, euthymic affect Lymphatic: no cervical or axillary lymphadenopathy Results & Data Results & Data ([facility]) Diagnostic Findings Multiple views of the knee demonstrates severe tricompartmental DJD with complete loss of the medial joint space. +osteophytes, +sclerosis, +subchondral cysts. Pre Admission Testing Addendum Laboratory Results 03/30/21 14:16 03/30/21 14:16 PT 9.9 Seconds (9.0-12.0) 03/30/21 14:16 INR 1.0 (0.9-1.1) 03/30/21 14:16 APTT 23.9 Seconds (21.0-31.0) 03/30/21 14:16 Hemoglobin A1c 5.2 % (4.5-5.6) 03/30/21 14:16 Urine Color Yellow 03/30/21 Unknown Urine Appearance Clear (Clear) 03/30/21 Unknown Urine pH 6.5 (4.5-7.5) 03/30/21 Unknown Ur Specific [place] 1.010 (1.000-1.030) 03/30/21 Unknown Urine Protein Negative (Negative) 03/30/21 Unknown Urine Glucose (UA) Negative (Negative) 03/30/21 Unknown Urine Ketones Negative (Negative) 03/30/21 Unknown Urine Nitrite Negative (Negative) 03/30/21 Unknown Ur Leukocyte Esterase Negative (Negative) 03/30/21 Unknown Blood Type A Negative 03/30/21 14:16 Antibody Screen NEGATIVE 03/30/21 14:16 03/30/21 Unknown Urine Culture - Final Urine,Clean Catch Lactobacillus species
[2021-04-10] MEDS ORDERED: TRANEXAMIC ACID 1,000 MG **IV Intra-op IV SCH (06:00)
[2021-04-10] MEDS ORDERED: dexAMETHasone 4 MG TAB PO SCH (06:00)
[2021-04-10] MEDS ORDERED: METOCLOPRAMIDE HCL 10 MG TABLET PO SCH (06:00)
[2021-04-10] MEDS ORDERED: ceFAZolin 2000MG 2,000 MG/15 ML SYR IV SCH (06:00)
[2021-04-10] MEDS ORDERED: CeleBREX 200 MG CAP PO SCH (06:00)
[2021-04-10] MEDS ORDERED: FAMOTIDINE 20 MG TAB PO SCH (06:00)
[2021-04-10] MEDS ORDERED: TRANEXAMIC ACID 1,000 MG **IV Pre-op IV SCH (06:00)
[2021-04-10] MEDS ORDERED: ROPIVACAINE 0.5% HCL/PF 150 MG, BUPIVACAINE 0.75% MPF 20 ML, EPINEPHrine 30MG/30ML (OR ... INFIL SCH (06:00)
[2021-04-10] MEDS ORDERED: LR 500ML BOLUS, THEN 15ML/HR IV SCH (06:00)
[2021-04-10] MEDS ORDERED: ACETAMINOPHEN 500 MG TAB PO SCH (06:00)
[2021-04-10] MEDS ORDERED: MIDAZOLAM HCL 1 MG/ML 2ML VIAL ONE ×2 (06:27→07:40)
[2021-04-10] MEDS ORDERED: PROPOFOL IV EMULSION 10 MG/ML 20 ML VIAL IV ONE ×7 (06:27→08:48)
[2021-04-10] MEDS ORDERED: fentaNYL citrate 100 MCG/2 ML VIAL ONE (06:27)
[2021-04-10] MEDS ORDERED: ROPIVACAINE 0.5% 5 MG/ML 30 ML VIAL ONE (06:30)
[2021-04-10] MEDS ORDERED: BUPIVACAINE 0.5 % 5 MG/1 ML PF 10ML VIAL ONE (06:30)
[2021-04-10] MEDS ORDERED: EPINEPHrine INJ 1 MG/ML AMP ONE (06:31)
[2021-04-10] MEDS ORDERED: ORTHO JOINT ANESTHETIC ONE (06:39)
--- NOTE | 2021-04-10 06:42 | History & Physical Bridge Note ---
Date of Service April 10, 2021 History & Physical Bridge Note I have examined the patient, reviewed the History & Physical and in the interval since the performance of the History & Physical I have noted the following changes of clinical significance: no changes noted
[2021-04-10] MEDS ORDERED: ePHEDrine sulfate 50 MG/ML AMP IV PRN (07:28)
[2021-04-10] MEDS ORDERED: ATROPINE SULFATE 0.1 MG/ML 10ML SYR IV PRN (07:28)
--- NOTE | 2021-04-10 08:47 | Post Operative Brief Note ---
Immediate Post Op Note v1 Date of Surgery April 10, 2021 Pre & Post Diagnosis Operation Date: 04/10/21 07:00 Pre-Op Diagnosis: Unilateral Primary Osteoarthritis, Left Knee Post-Op Diagnosis: Unilateral Primary Osteoarthritis, Left Knee I identified the patient and participated in the time-out.: Yes Procedure Operation Date: 04/10/21 07:00 Actual Procedures p Left Total Knee Arthroplasty(Left) - Min Jones DO Surgeon Min Jones DO Paper Cone Grader Ryder Dickens Estimated Blood Loss 50 Findings Consistent with Post-Op Diagnosis Fluids see anesthesia report Specimens Proximal tibia and distal femur bone fragments Anesthesia Type Spinal MAC Complications none Disposition Disposition: Recovery Room Overlapping Procedure I was present for: the critical portions of procedure. I was immediately available: during the entire case. Back up surgeon: was not required during procedure.
--- NOTE | 2021-04-10 08:49 | Operative Report ---
Post Operative Report Pre & Post Diagnosis Operation Date: 04/10/21 07:00 Pre-Op Diagnosis: Unilateral Primary Osteoarthritis, Left Knee Post-Op Diagnosis: Unilateral Primary Osteoarthritis, Left Knee I identified the patient and participated in the time-out.: Yes Procedure Operation Date: 04/10/21 07:00 Actual Procedures p Left Total Knee Arthroplasty(Left) - Min Jones DO Surgeon Min Jones DO Proof Reader Ryder Dickens Estimated Blood Loss 50 Findings Consistent with Post-Op Diagnosis Fluids See anesthesia report Specimens Proximal tibia and distal femur bone fragment Anesthesia Type Spinal MAC Complications none Disposition Disposition: Recovery Room Indications The patient is a 60-year-old female presents with long history of severe left knee tricompartmental DJD and failed outpatient conservative treatments including NSAIDs, bracing, injections and home walking/exercise program. The patient's symptoms have progressed to the point where it has been difficult to perform normal activities of daily living. I have indicated the patient for a low total knee arthroplasty, the risks and benefits and complications of the procedure include but are not limited to infection bleeding damage to bone, nerves, vessels, surrounding soft tissue, blood clots, loss of function, leg length discrepancy, dislocation, failure of the components, need for additional surgery and . The patient wished to proceed with surgery at this time and informed consent was obtained. Appropriate clearances were obtained. Description of Procedure COMPONENTS USED: Ryan persona knee system: Femur size 6 narrow, Tibia size G, Tibial articulating surface 13 PS, Patella 32 mm Following induction of spinal anesthesia, a tourniquet was applied to the proximal aspect of the thigh and the patient's left leg was prepped and draped in the usual sterile manner. A timeout was performed, patient identified and site keith confirmed. Appropriate pre-operative IV antibiotics were given. The limb was exsanguinated with an Esmarch bandage and tourniquet was inflated to 300 mmHg. A longitudinal midline incision was made over the anterior knee. Subcutaneous tissue was sharply dissected down to fascia. Electrocautery was used for hemostasis. Next a parapatellar arthrotomy was performed. Patella was everted and the knee was flexed. A Patton retractor was used to expose the synovium above on the anterior aspect of the femur and removed down to bone. Next, the anterior fat pad was removed to aid in visualization. The medial face of the tibia was cleared of soft tissue first with a Bovie and a root elevator. This tissue was retracted posteriorly using a blunt Hohmann. Next, the extra-medullary tibial cutting guide was placed to the anterior aspect of the tibia. The tibia resection level was set taking 2mm from the defective tibial condyle. Resection depth was once again confirmed with monica wing. The medial and lateral collateral ligament was protected with two Hohmann retractors. The tibia guide was removed and proximal tibial bone fragment removed utilizing straight osteotome, electrocautery and Johnny. Next, the distal femur intramedullary canal was accessed utilizing the step drill. The intramedullary distal femur cutting guide was placed into the canal and pinned into place. The distal femur was cut on the 5 degree setting. Next the cutting guide was removed and the femur was sized. Care was taken to ensure appropriate family services specialist all rotation and 3 degree holes were drilled. A size 6 4-in-1 cutting block was placed on the distal end of the femur and secured into place with two short headed screws. Two bent Hohmann retractors were placed to protect the medial and lateral collateral ligaments. The oscillating saw was used to cut anterior, posterior, anterior chamfer and posterior chamfer. The four and one cutting block was removed and bone fragments excised. Laminar shallot packer was placed laterally and the ACL and PCL were removed followed by the medial meniscus and posterior medial osteophytes. Aquamantys was utilized for any posterior medial bleeders and Orthomix injected into the posterior medial capsule. A laminar shallot packer was then placed in the medial compartment and the lateral meniscus and posterior osteophytes were removed. Aquamantys was utilized for any posterior lateral bleeders and Orthomix injected into the posterior lateral capsule. Next, drop kusum and spacer block were placed with the leg in flexion and extension to assess alignment and flexion/extension gaps. Next, the proximal tibia was assessed and two bent Hohmans were placed medial and lateral to aid in visualization. The appropriate tibia size and rotation was selected and a size D tibial plate was pinned into place with appropriate rotation. Preparation of the tibia was completed utilizing the matching tibial drill and broach. I then turned my attention back to the distal femur in a trial femoral component was impacted into place. Appropriate femoral width was assessed and selected. Next the femur PS box cut guide was placed and cut made with the reciprocal saw and the PS box provisional placed. A trial size 10 PS tibia articular tray was placed and varus-valgus balance assessed in 0 degrees of extension and 30, 60 and 90 degrees of flexion. A final tibial articular surface size 13 PS was chosen. Assess was gained to the patella and caliper utilized to measure width. The patella reamer was utilized and remaining bone removed with oscillating saw. A size 32 mm patella button was selected and the patella pegs drilled. Trial patella button was placed and tracking was assessed. The knee was found to be well balanced, well aligned with excellent patella tracking. The trials were removed and final components were obtained and assembled. The knee was irrigated copiously with sterile saline solution mixed with bacitracin. Access to the proximal tibia was once again obtained utilizing to the Hohmans and the proximal tibia and distal femur were dried with lap sponges. The final components were cemented into place and all excess cement was removed. A trial tibial articular surface was placed while cemented hardened. Knee stability was once again assessed and the final component inserted. A Betadine soak was per formed. After 3 minutes, the knee was once more irrigated with copious sterile saline solution with bacitracin. The knee was injected with the remaining Orthomix which includes a combination of Ropivicaine 0.5% 150mg, Bupivicaine 0.5%/Epinephrine 1:200,000 30ml, Toradol 30mg, Dexamethasone 4mg, Ketamine 10mg, Clonidine 100mcg and NSS 30ml solution. The capsulotomy was closed with #1 Vicryl followed by subcutaneous closure with 2-0 Vicryl suture and a 3-0 V-lock suture. Skin closure was performed using Prineo dressing followed by Telfa, 4 x 4s and thi wrap. Tourniquet was deflated at 92 minutes. The patient tolerated the procedure well and was taken to the PACU in stable condition. Due to the complex nature of the procedure, the entire surgery was performed with the operational assistance of Ryder Dickens PA-C. The operating room assistant, under direct supervision, was involved in the actual performance of all aspects of the surgical procedure including patient positioning, hemostasis, tissue retraction, instrument management and wound closure. I attest to the content of the Intraoperative Record and any orders documented therein. Any exceptions are noted below.
--- NOTE | 2021-04-10 09:39 | Anesthesiology Progress Note ---
Date of Service April 10, 2021 Anesthesia Post Procedure Vital Signs Vital Signs: Temp Pulse Pulse Resp BP Pulse Ox 04/10/21 09:30 70 16 147/85 H 98 04/10/21 09:20 69 16 144/87 H 100 04/10/21 09:16 37.0 C 87 14 158/89 H 100 04/10/21 05:46 36.6 C 69 18 140/99 99 Transfer of Care Handoff Completed per policy Notes Mental Status: alert / awake / arousable Patient Amnestic to Procedure: Yes Nausea / Vomiting: adequately controlled Pain: adequately controlled Airway Patency, RR, SpO2: stable & adequate BP & HR: stable & adequate Hydration State: stable & adequate Neuraxial Anesthesia: was administered and sensory block is resolving Anesthetic Complications: no major complications apparent
[2021-04-10] MEDS ORDERED: diphenhydrAMINE Capsule 25 MG CAP PO PRN (09:59)
[2021-04-10] MEDS ORDERED: bisacodyL 10 MG SUPP PR PRN (09:59)
[2021-04-10] MEDS ORDERED: HYDROmorphone INJ 0.5 MG/0.5 ML SYR IV PRN (09:59)
[2021-04-10] MEDS ORDERED: NALOXONE HCL 0.4 MG/1 ML VIAL/CARP IV PRN (09:59)
[2021-04-10] MEDS ORDERED: MAGNESIUM HYDROXIDE SUSP 30 ML UDC PO PRN (09:59)
[2021-04-10] MEDS ORDERED: METOCLOPRAMIDE HCL INJ 5 MG/ML 2 ML VIAL IV PRN (09:59)
[2021-04-10] MEDS ORDERED: SENNA 8.6 MG TAB PO PRN (09:59)
[2021-04-10] MEDS ORDERED: ONDANSETRON INJ 2 MG/ML 2 ML VIAL IV PRN (09:59)
--- NOTE | 2021-04-10 10:32 | XRay Report ---
XR knee LT 1 or 2V routine CLINICAL HISTORY: Surgical Post Op COMPARISON: None. DISCUSSION: There are postsurgical changes of a total left knee arthroplasty and patellar resurfacing . The femoral and tibial components appear well seated. There is gas within the soft tissues consiste nt with recent surgery. There are overlying skin prateek. IMPRESSION: Postsurgical changes of a total left knee arthroplasty. ACT 112: Negative or not required by law. Electronically signed by: Agustin Eastman M.D. 04/10/2021 10:30 AM
[2021-04-10] MEDS: SODIUM CHLORIDE 0.9% 1000ML 1,000 ML IV SCH ×2 (11:47→21:03)
[2021-04-10] MEDS: MULTIVITAMIN TAB PO SCH (11:49)
[2021-04-10] MEDS: DOCUSATE SODIUM 100 MG CAP PO SCH ×2 (11:49→19:44)
[2021-04-10] MEDS: KETOROLAC TROMETHAMINE 15 MG/ML VIAL IV SCH ×3 (12:12→21:04)
[2021-04-10] MEDS: ACETAMINOPHEN 500 MG TAB PO SCH ×2 (14:58→21:04)
[2021-04-10] MEDS: ceFAZolin 2000MG 2,000 MG/15 ML SYR IV SCH ×2 (16:09→23:27)
[2021-04-10] MEDS ORDERED: ALPRAZolam 0.5 MG TABLET PO PRN (17:27)
--- NOTE | 2021-04-10 18:12 | Orthopedic Progress Note ---
Date of Service April 10, 2021 Assessment & Plan (1) Degenerative joint disease of left knee: Status post left total knee arthroplasty -Ancef x24 -DVT prophylaxis: SCDs, teds, 81 mg ASA twice daily -Weight-bear as tolerates left lower extremity -PT/OT -Postoperative x-ray demonstrates well aligned well fixed prosthesis without fracture or dislocation -A.m. labs -DC planning - home with OP PT Admission and Anticipated Discharge Date Admission Date: April 10, 2021 Subjective Post Operative Progress Note Patient seen sitting in chair at bedside, comfortable, denies complaints, pain well controlled, no acute issues. Review of Systems Review of Systems: All systems reviewed & are unremarkable except as noted in HPI & below Constitutional: as per Subjective / HPI Physical Exam Physical Exam: Left lower extremity physical exam limited secondary to spinal anesthesia/block, +2 dorsalis pedis pulse, compartment soft nontender, dressings clean dry and intact Constitutional: WD/WN, vitals as above Results & Data ([facility]) Vital Signs (Past 12 Hours) Vital Signs Temp Pulse Pulse Resp BP Pulse Ox 04/10/21 16:37 36.5 C 04/10/21 15:15 36.6 C 62 16 148/89 H 99 04/10/21 13:03 36.7 C 73 17 130/84 98 04/10/21 12:05 36.5 C 63 17 124/79 98 04/10/21 11:04 36.3 C L 71 17 146/99 H 100 04/10/21 10:29 36.4 C L 67 18 142/85 H 100 04/10/21 10:00 36.5 C 62 16 143/84 H 100 04/10/21 09:50 65 16 149/91 H 99 04/10/21 09:40 36.3 C L 64 18 150/86 H 96 04/10/21 09:30 70 16 147/85 H 98 04/10/21 09:20 69 16 144/87 H 100 04/10/21 09:16 37.0 C 87 14 158/89 H 100
[2021-04-10] MEDS ORDERED: SENNA 8.6 MG TAB PO SCH (21:00)
[2021-04-11] MEDS: oxyCODONE HCL IR 5 MG TAB (IMMEDIATE RELEASE) PO PRN ×2 (02:39→11:25)
[2021-04-11] MEDS: KETOROLAC TROMETHAMINE 15 MG/ML VIAL IV SCH (05:13)
[2021-04-11] MEDS: ACETAMINOPHEN 500 MG TAB PO SCH ×2 (05:13→13:31)
--- NOTE | 2021-04-11 07:15 | Orthopedic Progress Note ---
Date of Service April 11, 2021 Assessment & Plan (1) Degenerative joint disease of left knee: Status post left total knee arthroplasty POD#1 -Ancef x24 -DVT prophylaxis: SCDs, teds, 81 mg ASA twice daily -Weight-bear as tolerates left lower extremity -PT/OT -Postoperative x-ray demonstrates well aligned well fixed prosthesis without fracture or dislocation -A.m. labs - as above, hgb 9.7 -DC planning - home with OP PT Admission and Anticipated Discharge Date Admission Date: April 10, 2021 Subjective Post Operative Progress Note Patient seen laying in bed, comfortable, denies complaints, pain well controlled, no acute issues. Denies F/C/N/V/SOB/CP. Review of Systems Review of Systems: All systems reviewed & are unremarkable except as noted in HPI & below Constitutional: as per Subjective / HPI Physical Exam Physical Exam: LLE NVSI +EHL/FHL/TA/GS SILT grossly, +2 DP pulse, compartments soft NT, dressing cdi. Constitutional: WD/WN, vitals as above Results & Data ([facility]) Vital Signs (Past 12 Hours) Vital Signs Temp Pulse Resp BP Pulse Ox 04/11/21 03:07 36.6 C 71 16 143/80 H 98 04/10/21 23:20 36.5 C 59 L 16 143/88 H 97 04/10/21 19:47 36.5 C 61 18 151/95 H 99 Laboratory Results 04/11/21 04/11/21 Range/Units 06:58 06:58 WBC 8.27 (4.8-10.8) K/uL RBC 3.41 L (4.2-5.4) M/uL Hgb 9.7 L (12.0-16.0) g/dL Hct 28.9 L (37-47) % MCV 84.8 (80-100) fL MCH 28.4 (25-34) pg MCHC 33.6 (32-36) g/dL RDW Std Deviation 40.6 (36.4-46.3) fL RDW Coeff of Malia 13.3 (11.5-14.5) % Plt Count 233 (130-400) K/uL MPV 9.0 (7.4-10.4) fL Sodium 145 (136-145) mmol/L Potassium 3.4 L (3.5-5.1) mmol/L Chloride 113 H (98-107) mmol/L Carbon Dioxide 25 (21-32) mmol/L Anion Gap 7.0 (3-11) BUN 15 (7-18) mg/dl Creatinine 0.72 (0.6-1.2) mg/dl Est Cr Clr Drug Dosing 100.8 ml/min Est GFR ( Amer) 107.0 ml/min Est GFR (Non-Af Amer) 92.3 ml/min BUN/Creatinine Ratio 20.6 H (10-20) Glucose 103 H (70-99) mg/dl Calcium 8.2 L (8.5-10.1) mg/dl
[2021-04-11 07:33] LABS: Hematocrit (blood only) 28.9 % (37-47); Hemoglobin 9.7 g/dL (12.0-16.0); Mean Corpuscular Hemoglobin 28.4 pg (25-34); Mean Corpuscular Hgb Conc 33.6 g/dL (32-36); Mean Corpuscular Volume 84.8 fL (80-100); Platelet Count 233 K/uL (130-400); RDW Coefficient of Variation 13.3 % (11.5-14.5); RDW Standard Deviation 40.6 fL (36.4-46.3); Red Blood Count 3.41 M/uL (4.2-5.4); White Blood Count 8.27 K/uL (4.8-10.8)
[2021-04-11 07:53] LABS: BUN Creatinine Ratio 20.6 (10-20); Calcium 8.2 mg/dl (8.5-10.1); Creatinine Clr Calc Pharmacy 100.8 ml/min; Est GFR (Non-African American) 92.3 ml/min; Potassium 3.4 mmol/L (3.5-5.1)
[2021-04-11] MEDS ORDERED: ASPIRIN 81 MG ECTAB PO SCH (09:00)
[2021-04-11] MEDS ORDERED: DULoxetine HCL 60 MG CAP PO SCH (09:00)
[2021-04-11] MEDS ORDERED: PANTOprazole 40 MG TAB PO SCH (09:00)
[2021-04-11] MEDS: DOCUSATE SODIUM 100 MG CAP PO SCH (09:22)
[2021-04-11] MEDS: MULTIVITAMIN TAB PO SCH (09:22)
--- NOTE | 2021-04-11 18:58 | Discharge Summary ---
Date of Service April 11, 2021 Admission HPI Per Admitting Provider The patient is a 60 year old female who presents with complaints of severe left knee pain and DJD. The patient has failed outpatient conservative treatments to this point which included NSAIDs, IA corticosteroid and SALINAS injections, bracing, PT/HEP. The patient's pain and limited function have progressed to the point where they severely hinder their activities of daily living and they no longer tolerate exercise programs. They are requesting to proceed with total knee replacement surgery. Principal Diagnosis Left total knee replacement Discharge Exam LLE NVSI +EHL/FHL/TA/GS SILT grossly, +2 DP pulse, compartments soft NT, dressing cdi. Constitutional WD/WN, vitals as above Discharge Data Allergies Allergy/AdvReac Type Severity Reaction Status Date / Time No Known Allergies Allergy Verified 03/16/21 11:50 Procedures Performed Operation Date: 04/10/21 07:00 Actual Procedures p Left Total Knee Arthroplasty(Left) - Min Jones DO Ordered Studies 04/10/21 05:00 US - OR guided needle placemen Routine Hospital Course (1) Degenerative joint disease of left knee: Hospital Course: On04/10/21 the patient was taken to the operating room, adequate anesthesia ad ministered and underwent a left total knee arthroplasty. The patient tolerated the procedure well and was taken to the PACU in stable condition. Post- operatively the patient was started on a DVT ppx medication and given appropriate IV antibiotics. Consults were placed to physical therapy, occupational therapy and case management. On POD#1, the patient did well overnight and their pain was well controlled. Labs were drawn and the Hgb was 9.7. The patient progressed well with PT. Dressings were changed at this time and the incision was clean, dry and intact. The patients hospital stay was relatively uneventful and they were deemed stable by the orthopedic team and consultants to be discharged home with outpatient PT on 04/11/21. Discharge Instructions: Upon discharge the patient may weight bear as tolerates through their operative extremity. They were instructed to keep the incision clean and dry at all times. The patient may shower but should not submerge the incision, avoid bathing, pools and hot tubs. The patient was given a script for pain medication and should take as instructed. The patient was given a script for DVT ppx 81mg ASA BID and should take as directed. The patient was instructed to not drive or travel for long distances until cleared to do so. If the patient develops any symptoms of fevers, chills, nausea, vomiting, increased redness, swelling, pain or drainage from the surgical site, they should notify the office and/or proceed to the nearest emergency room. The patient should follow up in 10-14 days after surgery for their routine post-operative follow-up appointment and should call the office, to confirm the date and time. Status post left total knee arthroplasty POD#1 -Ancef x24 -DVT prophylaxis: SCDs, teds, 81 mg ASA twice daily -Weight-bear as tolerates left lower extremity -PT/OT -Postoperative x-ray demonstrates well aligned well fixed prosthesis without fracture or dislocation -A.m. labs - as above, hgb 9.7 -DC planning - home with OP PT Total Time Total Time Spent Total Time Spent (In Minutes): 30 Discharge Plan Discharge Items Patient Disposition: Home - Self-Care Reason For Visit: Unilateral Primary Osteoarthritis, Left Knee Discharge Diagnosis: Left total knee replacement Condition on Discharge: Good Activity: Per Instructions section Lifting: Wait until after follow-up appointment Bathing: Keep incision dry Bathing Comment: No bathing, pools or hot tubs. Sexual Activity: Wait until after follow-up appointment Exercise/Sports: Wait until after follow-up appointment Driving/Machine Use: No driving. Weightbearing: Full weightbearing Non-emergency contact: Primary Care Provider and Surgeon Call non-emergency contact if: you have any medication questions, your symptoms worsen, your pain is not controlled, your pain is worsening, your pain is unusual for you, your pain is concerning for you, you have a fever, your temperature is above 101, your wound has increased redness, your wound has increased drainage and your wound pain has increased Follow-up/Referrals: Sydnie Rivera CRNP [Primary Care Provider] - Diet: Regular Addtl Attending Provider Instructions: ACTIVITY RECOMMENDATIONS: SELF CARE INSTRUCTIONS AFTER TOTAL KNEE REPLACEMENT A. You may need to continue a physical therapy program after discharge from the hospital. There are several options available to you. Your doctor will assist you in selecting the best one for you. 1. An out-patient facility 2 to 3 times a week for therapy or home therapy. 2. Continue working on all exercises taught to you in the hospital. Your goals should be to increase bending of your knee to 90 degrees and beyond and to fully straighten your knee. B. You may progress at your own pace from walking with a walker or crutches to a cane; then to no assistive devices. C. Make walking a part of your daily routine. Be up as much as comfortable with rest periods throughout the day. Rest with leg elevation is very important. Use the ice wrap frequently for the first 3-4 weeks. D. There are no restrictions on activities. You may ride in a car, shop, participate in telecommunications engineer and all social activities. E. Wear the long elastic stockings (JEWEL hose) 20 hours a day for 2 weeks after surgery. They can be removed several times a day for laundering and for a bath. F. You may shower, no tub baths until cleared by your doctor. SPECIAL CARE INSTRUCTIONS: VERY IMPORTANT TO READ AND REVIEW A. There are a few signs you need to watch for after you are home. Call [facility] if you notice any of the followin. Increased severe knee pain. Some pain is expected especially when you exercise. 2. Increased swelling in your leg or knee; pain or swelling of the calf muscle in either lower leg. 3. Any fluid drainage from the incision. 4. Shortness of breath or chest pain. B. Please call [facility] at if you have any concerns or questions about your operation or recovery. The doctor or his nurse will return your call promptly. C. You must take antibiotics before dental work, bladder, bowel or other s urgery. Your doctor will provide you with a permanent care to carry describing this precaution. IMPORTANT: * REMEMBER TO TAKE ASPIRIN, 81 MG, TWICE DAILY FOR 4 WEEKS UNLESS OTHERWISE DIRECTED. THIS IS YOUR BLOOD THINNER. * HIGH RISK PATIENTS MAY BE PRESCRIBED A STRONGER BLOOD THINNER. THIS WILL BE PROVIDED AT DISCHARGE. * CALL IF INCREASED PAIN, REDNESS, DRAINAGE OR FEVER GREATER THAT 101. * WEAR JEWEL HOSE 20 HOURS PER DAY FOR 2 WEEKS. *CALIN incisional vac is a special dressing covering your incision. This dressing provides a sterile dry environment while you are healing. The dressing is to be left in place for 7 days post-operatively. Your home nurse or surgeon will remove. If you develop any redness or blisters or have any questions notify your surgeon immediately. FOLLOW UP VISIT: If appointment is not already scheduled: Please call [facility] to make a follow-up appointment for 2 weeks after your surgery at . Pending Studies at Discharge: No Stand-Alone Forms: My [facility], Opioid Pain Management, Smoking Cessation Medications and DC Order Prescriptions: New acetaminophen 500 mg Tablet 1,000 mg PO Q8 PRN (Reason: fever or pain) Qty: 90 RF: 0 aspirin 81 mg Tablet,Delayed Release (Dr/Ec) 81 mg PO BID Qty: 56 RF: 0 celecoxib [Celebrex] 200 mg Capsule 200 mg PO BID PRN (Reason: pain/inflammtion) Qty: 30 RF: 0 oxycodone 5 mg Tablet 5 mg PO Q6H MDD 4 PRN (Reason: pain) Qty: 30 RF: 0 sennosides [Senokot] 8.6 mg Tablet 17.2 mg PO HS PRN (Reason: constipation) Qty: 30 RF: 0 Continued alprazolam [Xanax] 0.5 mg Tablet 0.5 mg PO HS RF: 0 pantoprazole 40 mg Tablet,Delayed Release (Dr/Ec) 40 mg PO QAM RF: 0 duloxetine 60 mg Capsule,Delayed Release(Dr/Ec) 60 mg PO QAM RF: 0 Caltrate + D3 Plus Minerals 300 mg-800 unit -25 mg-0.5 mg Tablet 1 tab PO QAM RF: 0 cyanocobalamin (vitamin B-12) 1,000 mcg/mL Kit 1,000 mcg IM MONTHLY RF: 0 levothyroxine 88 mcg Tablet 88 mcg PO QAM RF: 0 cholecalciferol (vitamin D3) [Vitamin D3] 125 mcg (5,000 unit) Tablet 125 mcg PO QAM RF: 0 sennosides [Senokot] 8.6 mg Tablet 17.2 mg PO HS PRN (Reason: CONSTIPATION) Qty: 28 RF: 0 potassium 99 mg Tablet 99 mg PO Q OTHER DAY RF: 0 Discontinued acetaminophen 500 mg Tablet 1,000 mg PO Q8 PRN (Reason: PAIN/FEVER) Qty: 90 RF: 0 oxycodone 5 mg Tablet 5 mg PO Q6H MDD 4 PRN (Reason: pain) Qty: 30 RF: 0 Discharge Orders: Discharge Order (Routine); Ordered 04/11/21 Ordered By: Min Forrester/Other Patient Handouts: DVT Post Op Prevention Admission Data Admit Date/Time: 04/10/21 09:14 Attending Provider: Min Jones Admit Provider: Min Jones Primary Care Provider: Sydnie Rivera Other Interventions: Discharge Summary Assessment (RN) Last Done: 04/11/21 12:45
[2021-04-11] MEDS ORDERED: CeleBREX 200 MG CAP PO SCH (21:00)
== END 2021-04-11 13:51 | disposition home or self-care (01) | DRG 470 ==
LOC: ASU 05:20 → 3E 05:20 → OBSVTOIN 09:14